=== PATIENT | female | born 1955 | race Caucasian/White ===

== ENCOUNTER 2017-01-19 10:58 | Outpatient (CLI) | payer OTHER ==
[~2017-01-19 10:58] MED LIST: ADVAIR DISKUS 21 DSK IH; ALBUTEROL0.09 MG/A2 IH; CRESTOR5 MG PO; FLOVENT HF44 MCG/ACT INH; HTN MEDS; LOTENSIN20 MG PO; MOTRIN600 MG PO; ORETIC25 MG PO; PROAIR HFA0.09 MG/Ac IH; ZANTAC150 MG PO; unknown meds
== END 2017-01-19 20:03 | disposition home or self-care (01) ==
LOC: MRD 10:58
PROVIDERS: ATTEND Family Medicine
DX: M54.31 Sciatica, right side (principal)

== ENCOUNTER 2018-01-14 10:19 | Outpatient (CLI) | payer OTHER ==
[~2018-01-14 10:19] MED LIST changes: -ADVAIR DISKUS 21 DSK IH; +ALBU-136 IH; -ALBUTEROL0.09 MG/A2 IH; +BENA20TA PO; -CRESTOR5 MG PO; +FLO44 INH; -FLOVENT HF44 MCG/ACT INH; +FLUT1DSK2 IH; +IBUP-2213 PO; -LOTENSIN20 MG PO; -MOTRIN600 MG PO; +ORE25 PO; -ORETIC25 MG PO; -PROAIR HFA0.09 MG/Ac IH; +RANI-287 PO; +ROSU5TAB PO; -ZANTAC150 MG PO; -unknown meds
[2018-01-14 12:13] LABS: ALBUMIN 3.4 g/dL (3.4-5.0); ANION GAP 13.5 (8-16); BILIRUBIN,DIRECT 0.1 mg/dL (0.0-0.3); CARBON DIOXIDE 26.4 mmol/L (21-32); CHOL/HDL RATIO 3.4 (1-4.5); CREATININE 0.9 mg/dL (0.6-1.3); POTASSIUM 3.9 mmol/L (3.5-5.1); TOTAL BILIRUBIN 0.3 mg/dL (0.0-1.0)
== END 2018-01-14 20:28 | disposition home or self-care (01) ==
LOC: MLB 10:19
DX: Z13.1 Encounter for screening for diabetes mellitus (principal); I10 Essential (primary) hypertension; E78.2 Mixed hyperlipidemia
CPT/HCPCS: 36415; 80053; 82248; 83036

== ENCOUNTER 2018-02-02 09:43 | Outpatient (CLI) | payer OTHER | END 2018-02-02 19:23 | disposition home or self-care (01) | LOC: MRD 09:43 | PROVIDERS: ATTEND Family Medicine Geriatric Medicine | DX: J40 Bronchitis, not specified as acute or chronic (principal); J45.41 Moderate persistent asthma with (acute) exacerbation | CPT/HCPCS: 71046 ==

== ENCOUNTER 2018-12-09 13:39 | Outpatient (CLI) | payer OTHER | END 2018-12-09 20:48 | disposition home or self-care (01) | LOC: MRD 13:39 | PROVIDERS: ATTEND Family Medicine Geriatric Medicine | DX: R05 Cough (principal); I11.9 Hypertensive heart disease without heart failure; M47.894 Other spondylosis, thoracic region; J45.42 Moderate persistent asthma with status asthmaticus; F15.90 Other stimulant use, unspecified, uncomplicated; Z87.891 Personal history of nicotine dependence; Z88.0 Allergy status to penicillin | CPT/HCPCS: 71046 ==

== ENCOUNTER 2018-12-14 14:17 | Outpatient (CLI) | payer OTHER ==
[2018-12-14 14:42] LABS: BASOPHILS # (AUTO) 0.1 K/uL (0.00-0.22); BASOPHILS % (AUTO) 0.8 % (0.0-2.0); EOSINOPHILS # (AUTO) 0.3 K/uL (0-0.4); EOSINOPHILS % (AUTO) 3.7 % (0.0-4.0); HEMOGLOBIN 10.6 g/dL (12.0-16.0); LYMPHOCYTES # (AUTO) 1.3 K/uL (2.5-16.5); LYMPHOCYTES % (AUTO) 15.9 % (20.5-51.1); MEAN CORPUSCULAR HEMOGLOBIN 28 pg (27-31); MEAN CORPUSCULAR HGB CONC 32 g/dL (33-37); MEAN CORPUSCULAR VOLUME 86.3 fL (80-94); MONOCYTES # (AUTO) 0.6 K/uL (0.8-1.0); MONOCYTES % (AUTO) 6.7 % (1.7-9.3); NEUTROPHILS # (AUTO) 6.1 K/uL (1.8-7.7); NEUTROPHILS % (AUTO) 72.9 % (42.2-75.2); PLATELET COUNT (AUTO) 411 K/uL (140-450); RED BLOOD CELL COUNT(AUTO) 3.83 MIL/uL (4.20-5.40); WHITE BLOOD COUNT (AUTO) 8.4 K/uL (4.8-10.8)
[2018-12-14 14:59] LABS: APPEARANCE,URINE CLEAR (CLEAR); BILIRUBIN,URINE NEGATIVE (NEGATIVE); BLOOD, URINE 1+ (NEGATIVE); COLOR,URINE YELLOW (YELLOW); LEUKOCYTE ESTERASE ,URINE NEGATIVE (NEGATIVE); NITRITE, URINE NEGATIVE (NEGATIVE); UGLUCOSE NEGATIVE (NEGATIVE)
[2018-12-14 15:00] LABS: RBC,URINE 3-10 (FEW) /HPF (0-5); WBC,URINE 0-5 (RARE) /HPF (0-5)
[2018-12-14 15:16] LABS: ALBUMIN 3.3 g/dL (3.4-5.0); ANION GAP 12.6 (8-16); CARBON DIOXIDE 27.9 mmol/L (21-32); CHOL/HDL RATIO 4.2 (1-4.5); CREATININE 0.8 mg/dL (0.6-1.3); FREE T4 (FREE THYROXINE) 1.03 ng/dL (0.76-1.46); POTASSIUM 3.5 mmol/L (3.5-5.1); THYROID STIMULATING HORMONE 0.01 uIU/mL (0.34-3.74); TOTAL BILIRUBIN 0.5 mg/dL (0.0-1.0)
== END 2018-12-14 19:28 | disposition home or self-care (01) ==
LOC: MLB 14:17
PROVIDERS: ATTEND Family Medicine Geriatric Medicine
DX: Z13.29 Encounter for screening for other suspected endocrine disorder (principal); Z13.0 Encounter for screening for diseases of the blood and blood-forming organs and certain disorders involving the immune mechanism; Z13.21 Encounter for screening for nutritional disorder; I10 Essential (primary) hypertension; E78.2 Mixed hyperlipidemia; F15.90 Other stimulant use, unspecified, uncomplicated; Z88.0 Allergy status to penicillin
CPT/HCPCS: 36415; 80053; 81001; 82306; 83036; 84439; 84443; 85025

== ENCOUNTER 2018-12-27 09:47 | Outpatient (CLI) | payer OTHER | END 2018-12-27 20:40 | disposition home or self-care (01) | LOC: MLB 09:47 | PROVIDERS: ATTEND Family Medicine Geriatric Medicine | DX: D64.9 Anemia, unspecified (principal); J45.909 Unspecified asthma, uncomplicated; I10 Essential (primary) hypertension; Z72.0 Tobacco use | CPT/HCPCS: 82272 ==

== ENCOUNTER 2019-03-29 16:44 | Outpatient (CLI) | payer OTHER | END 2019-03-29 20:55 | disposition home or self-care (01) | LOC: MCA 16:44 | PROVIDERS: ATTEND Internal Medicine Cardiovascular Disease | DX: I07.1 Rheumatic tricuspid insufficiency (principal); I27.20 Pulmonary hypertension, unspecified; I11.9 Hypertensive heart disease without heart failure; I70.0 Atherosclerosis of aorta; R06.00 Dyspnea, unspecified ==

== ENCOUNTER 2019-04-12 12:23 | Outpatient (CLI) | payer OTHER | END 2019-04-12 18:13 | disposition home or self-care (01) | LOC: MDS 12:23 → MRD 18:13 | PROVIDERS: ATTEND Neuromusculoskeletal Medicine, Sports Medicine | DX: S52.124A Nondisplaced fracture of head of right radius, initial encounter for closed fracture (principal); X58.XXXA Exposure to other specified factors, initial encounter; Y93.89 Activity, other specified; Y92.89 Other specified places as the place of occurrence of the external cause; Y99.8 Other external cause status | CPT/HCPCS: 73080 ==

== ENCOUNTER 2019-05-05 11:05 | Outpatient (CLI) | payer OTHER ==
[2019-05-05 12:33] LABS: BASOPHILS % (AUTO) 0.3 % (0.0-2.0); EOSINOPHILS % (AUTO) 0.4 % (0.0-4.0); HEMATOCRIT 22.5 % (36-48); LYMPHOCYTES # (AUTO) 0.8 K/uL (2.5-16.5); LYMPHOCYTES % (AUTO) 8.4 % (20.5-51.1); MEAN CORPUSCULAR HEMOGLOBIN 24 pg (27-31); MEAN CORPUSCULAR HGB CONC 31 g/dL (33-37); MEAN CORPUSCULAR VOLUME 76.7 fL (80-94); MONOCYTES # (AUTO) 0.3 K/uL (0.8-1.0); MONOCYTES % (AUTO) 3.6 % (1.7-9.3); NEUTROPHILS # (AUTO) 7.9 K/uL (1.8-7.7); NEUTROPHILS % (AUTO) 87.3 % (42.2-75.2); PLATELET COUNT (AUTO) 445 K/uL (140-450); RED BLOOD CELL COUNT(AUTO) 2.94 MIL/uL (4.20-5.40); RED CELL DISTRIBUTION WIDTH 15.8 % (11.6-13.7); WHITE BLOOD COUNT (AUTO) 9.1 K/uL (4.8-10.8)
== END 2019-05-05 20:52 | disposition home or self-care (01) ==
LOC: MLB 11:05
DX: D64.9 Anemia, unspecified (principal)
CPT/HCPCS: 36415; 82728; 83540; 85025

== ENCOUNTER 2019-05-05 19:21 | Inpatient (IN) | payer OTHER ==
[~2019-05-05] VITALS: Ht 157.5 cm; Wt 88.0 kg
[2019-05-05 19:25] VITALS: BP 145/84
--- NOTE | 2019-05-05 19:25 | NUR ---
PATIENT AMBULATED TO ER BED 1.
--- NOTE | 2019-05-05 19:44 | NUR ---
DR. MALDONADO EVALUATING PT
--- NOTE | 2019-05-05 19:49 | NUR ---
PT PRESENTS TO ED WITH C/O SOB, COUGH X3 WEEKS. PT ALSO REPORTS LETHARGY. STATED HEMOGLOBIN DROP FROM 10.6(11/2018) TO 7.0(TODAY. AAO X4, GCS 15, AMBULATORY WITH STEADY GAIT. RESPIRATIONS EVEN AND UNLABORED, BL LUNG CLEAR. SKIN WARM/PALE/DRY, +PMSC. ABDOMEN SOFT, NON DISTENDED, ACTIVE BOWEL SOUND X4. VS WNL, DENIES PAIN AT THIS TIME. WILL CONTIONUE TO MONITOR
[2019-05-05 20:46] LABS: BASOPHILS % (AUTO) 0.3 % (0.0-2.0); HEMATOCRIT 22.8 % (36-48); HEMOGLOBIN 7.1 g/dL (12.0-16.0); LYMPHOCYTES # (AUTO) 1.1 K/uL (2.5-16.5); LYMPHOCYTES % (AUTO) 9.9 % (20.5-51.1); MEAN CORPUSCULAR HEMOGLOBIN 24 pg (27-31); MEAN CORPUSCULAR HGB CONC 31 g/dL (33-37); MEAN CORPUSCULAR VOLUME 75.5 fL (80-94); MONOCYTES # (AUTO) 0.5 K/uL (0.8-1.0); MONOCYTES % (AUTO) 4.5 % (1.7-9.3); NEUTROPHILS # (AUTO) 9.5 K/uL (1.8-7.7); NEUTROPHILS % (AUTO) 85.3 % (42.2-75.2); PLATELET COUNT (AUTO) 518 K/uL (140-450); RED BLOOD CELL COUNT(AUTO) 3.02 MIL/uL (4.20-5.40); RED CELL DISTRIBUTION WIDTH 15.7 % (11.6-13.7); WHITE BLOOD COUNT (AUTO) 11.1 K/uL (4.8-10.8)
--- NOTE | 2019-05-05 20:56 | NUR ---
REPORT GIVEN TO RADHA RODRIGUEZ
[2019-05-05 20:57] LABS: ANION GAP 15.6 (8-16); CARBON DIOXIDE 23.5 mmol/L (21-32); CREATININE 0.8 mg/dL (0.6-1.3); POTASSIUM 4.1 mmol/L (3.5-5.1)
[2019-05-05 21:02] LABS: ALBUMIN 3.5 g/dL (3.4-5.0); TOTAL BILIRUBIN 0.3 mg/dL (0.0-1.0)
[2019-05-05] MEDS ORDERED: HYDROcodone/APAP 7.5/325 MG 1 TAB PO PRN (21:35)
[2019-05-05 21:55] LABS: PROTHROMBIN TIME 9.6 secs (10.8-13.4)
[2019-05-05 22:00] VITALS: BP 138/66
--- NOTE | 2019-05-05 22:00 | NUR ---
PATIENT ADMITTED TO ROOM 116, TELE FLOOR. UNDER THE CARE OF DR. KENDALL. REPORT GIVEN TO JENNIFER WOLF. PATIENT STABLE DURING TRANSFER.
--- NOTE | 2019-05-05 22:00 | NUR ---
REPORT RECEIVED FROM ED NURSE AT BEDSIDE. PT IN STABLE CONDITION. AAOX4. INTRODUCED TO PT. BOARD UPDATED. NO COMPLAINTS OF PAIN. NO SOB. AFEBRILE. PT IS AMBULATORY. VIP. IV SITE L AC 20G PATENT AND INTACT. SKIN WARM, DRY, AND INTACT WITH NO OPEN WOUNDS. MRSA NARES COLLECTED. PT SKIN COLOR WNL TO ETHNICITY. BED LOCKED IN LOW POSITION. CALL NORMAN WITHIN REACH. SAFETY PRECAUTION IN PLACE. ALL NEEDS MET AT THIS TIME.
[2019-05-05 22:01] LABS: AMYLASE 78 U/L (25-115); CHOL/HDL RATIO 3.5 (1-4.5); FREE T4 (FREE THYROXINE) 1.15 ng/dL (0.76-1.46); HDL CHOLESTEROL 48 mg/dL (40-60); LDL (CALC) 104 mg/dL (60-100); LIPASE 285 U/L (73-393); PHOSPHORUS 3.7 mg/dL (2.5-4.9); THYROID STIMULATING HORMONE < 0.01 uIU/mL (0.34-3.74); TRIGLYCERIDES 94 mg/dL (30-150)
[2019-05-05] MEDS ORDERED: IBUPROFEN 600 MG TAB PO PRN (22:40)
[2019-05-05] MEDS ORDERED: ALBUTEROL SULFATE/IPRATROPIU 3 ML SOL IH PRN (23:05)
[2019-05-05] MEDS: NACL 0.9% 500 ML IV SCH (23:29)
[2019-05-05] MEDS: ACETAMINOPHEN 325 MG TAB PO PRN (23:29)
--- NOTE | 2019-05-05 23:29 | NUR ---
TYL GIVEN PO FOR HEADACHE. PT TOLERATED WELL.
--- NOTE | 2019-05-06 00:10 | NUR ---
PATIENT LYING DOWN IN BED, WATCHING TV. INSTRUCTED TO USE CALL LIGHT WHEN NEEDED. WILL CONTINUE TO MONITOR PATIENT.
--- NOTE | 2019-05-06 01:30 | NUR ---
PATIENT SITTING UP IN BED, WATCHING TV. GAVE INSTRUCTIONS FOR URINE AND STOOL SPECIMEN COLLECTION. WILL CONTINUE TO MONITOR AND UPDATE PATIENT REGARDING BLOOD TRANSFUSION ORDER.
--- NOTE | 2019-05-06 02:42 | NUR ---
PATIENT LYING DOWN IN BED, APPEARS TO BE SLEEPING. WILL CONTINUE TO MONITOR PATIENT.
[2019-05-06 04:00] VITALS: BP 115/51
--- NOTE | 2019-05-06 04:05 | NUR ---
PATIENT LYING IN BED, APPEARS TO BE SLEEPING. WOKE UP FOR VITAL SIGNS CHECK. USED THE RESTROOM TO URINATE AND ABLE TO COLLECT SAMPLE FOR URINE LAB TEST. URINE SPECIMEN TAKEN TO THE LAB BY SILVIO.
[2019-05-06 05:16] LABS: APPEARANCE,URINE CLEAR (CLEAR); BILIRUBIN,URINE NEGATIVE (NEGATIVE); BLOOD, URINE TRACE-I (NEGATIVE); COLOR,URINE YELLOW (YELLOW); LEUKOCYTE ESTERASE ,URINE NEGATIVE (NEGATIVE); NITRITE, URINE NEGATIVE (NEGATIVE); PH,URINE 5.5 (5.0-9.0); UGLUCOSE 2+ (NEGATIVE)
[2019-05-06 06:06] LABS: RBC,URINE NONE SEEN /HPF (0-5); WBC,URINE 0-5 /HPF (0-5)
--- NOTE | 2019-05-06 06:25 | NUR ---
WENT TO BLOOD BANK AT 0610 TO BANKING PIN ADJUSTER BLOOD. STARTED BLOOD TRANSFUSION. EDUCATED PATIENT REGARDING SIGNS AND SYMPTOMS OF AN ALLERGIC REACTION. INSTRUCTED PATIENT TO REPORT ANY ALLERGIC REACTION FROM THE TRANSFUSION. INITIAL VS BP 132/81, P 82, T 98.1, RR 19. WILL CONTINUE TO MONITOR PATIENT.
--- NOTE | 2019-05-06 06:40 | NUR ---
PATIENT TOLERATING BLOOD TRANSFUSION WELL. VS ARE: BP 123/61, P 80, RR 17, T 98.3. PATIENT IS ON CONTINUOUS MONITORING DURING BLOOD TRANSFUSION.
--- NOTE | 2019-05-06 07:20 | NUR ---
REPORT GIVEN TO AM NURSE AT BEDSIDE. PT IN STABLE CONDITION.
--- NOTE | 2019-05-06 07:22 | NUR ---
RECEIVED BEDSIDE REPORT FROM SOCIAL WORK THERAPIST NURSE. PATIENT IS AWAKE AND RESTING ON BED. PATIENT IS RECEIVING BLOOD TRANSFUSION AT THIS TIME. NO ALLERGIC REACTION NOTED. PATIENT IS AAOX4. DENIES PAIN AND SOB AT THIS TIME. RESPIRATION EVEN AND UNLABORED ON RA. NO SIGNS OF DISTRESS NOTED. IV ON LAC 20G, CLEAN AND DRY, RECEIVING BLOOD TRANSFUSION. SKIN INTACT AND CLEAN. PATIENT IS CONTINENT AND ABLE TO AMBULATE WITH STANDBY ASSIST. DISCUSSED PLAN OF CARE WITH PATIENT AND PATIENT VERBALIZED UNDERSTANDING. INSTRUCTED PATIENT TO USE THE CALL LIGHT FOR ANY ASSISTANCE AND PATIENT WAS AWARE. BED IN LOW POSITION AND CALL LIGHT WITHIN REACH.
--- NOTE | 2019-05-06 07:28 | NUR ---
RECEIVED BEDSIDE REPORT FROM HYDROGEN POWER PLANT ENGINEER NURSE. PATIENT IS AWAKE AND RESTING ON BED. PATIENT IS AAOX4. DENIES PAIN AND SOB AT THIS TIME. RESPIRATION EVEN AND UNLABORED ON 2LPM VIA NC. NO SIGNS OF DISTRESS NOTED. PICC LINE ON R GROIN, CLEAN AND DRY. SKIN INTACT AND CLEAN. PATIENT IS CONTINENT AND ABLE TO AMBULATE WITH STANDBY ASSIST. BEDSIDE COMMODE IS IN PLACE. FALL RISK PROTOCOL INITIALED AND BED ALARM ACTIVATED. INSTRUCTED PATIENT TO USE THE CALL LIGHT FOR ANY ASSISTANCE AND PATIENT VERBALIZED OK. DISCUSSED PLAN OF CARE WITH PATIENT AND PATIENT VERBALIZED UNDERSTANDING. INSTRUCTED PATIENT TO USE THE CALL LIGHT FOR ANY ASSISTANCE AND PATIENT WAS AWARE. BED IN LOW POSITION AND CALL LIGHT WITHIN REACH. Addendum: 05/06/19 at 0737 by Nelly Shelley RN WRONG PATIENT.
--- NOTE | 2019-05-06 07:47 | NUR ---
PATIENT HAS BEEN SCREENED AND CATEGORIZED MODERATE NUTRITION RISK. PATIENT WILL BE SEEN WITHIN 3-5 DAYS OF ADMISSION. 05/08/19-05/10/[address]
[2019-05-06] MEDS: ACETAMINOPHEN 325 MG TAB PO SCH ×3 (07:55→15:54)
--- NOTE | 2019-05-06 07:57 | NUR ---
ADMINISTERED MEDS PER MD ORDER, PATIENT TOLERATED WELL. PATIENT IS AWAKE AND EATING BREAKFAST. BLOOD TRANSFUSION IS RUNNING AT 100ML/HR. NO ALLERGIC REACTIONS NOTED. MINIMAL COUGHS NOTED AND WHEEZE HEARD ON EXHALE. PATIENT DENIED PAIN AND SOB. ON RA. NO SIGNS OF DISTRESS NOTED. INSTRUCTED PATIENT TO USE THE CALL LIGHT FOR ANY ASSISTANCE AND PATIENT WAS AWARE.
[2019-05-06 08:03] LABS: BASOPHILS % (AUTO) 0.4 % (0.0-2.0); EOSINOPHILS # (AUTO) 0.1 K/uL (0-0.4); EOSINOPHILS % (AUTO) 0.5 % (0.0-4.0); LYMPHOCYTES # (AUTO) 1.8 K/uL (2.5-16.5); LYMPHOCYTES % (AUTO) 17.3 % (20.5-51.1); MEAN CORPUSCULAR HEMOGLOBIN 24 pg (27-31); MEAN CORPUSCULAR HGB CONC 31 g/dL (33-37); MEAN CORPUSCULAR VOLUME 76.3 fL (80-94); MONOCYTES % (AUTO) 9.7 % (1.7-9.3); NEUTROPHILS # (AUTO) 7.6 K/uL (1.8-7.7); NEUTROPHILS % (AUTO) 72.1 % (42.2-75.2); PLATELET COUNT (AUTO) 485 K/uL (140-450); RED BLOOD CELL COUNT(AUTO) 2.75 MIL/uL (4.20-5.40); RED CELL DISTRIBUTION WIDTH 15.9 % (11.6-13.7); WHITE BLOOD COUNT (AUTO) 10.6 K/uL (4.8-10.8)
[2019-05-06] MEDS: BUDESONIDE 0.25 MG/2 ML NEBU INH SCH ×2 (08:14→19:26)
[2019-05-06] MEDS ORDERED: ALBUTEROL SULFATE/IPRATROPIU 3 ML SOL IH PRN (08:15)
[2019-05-06 08:18] VITALS: BP 132/89
--- NOTE | 2019-05-06 08:30 | NUR ---
RECEIVED TELEPHONE ORDER FROM DR STREETER THAT HE WILL COME IN AROUND 1400 [address], AND HE WOULD LIKE TO PUT IN THE FOLLOWING ORDERS: CHANGE DIET FROM REGULAR TO CLEAR LIQUID, MAG CITRATE 300 ML AND DULCOLAX 5MG X3 TABS AT 1300 AND 1700 FOLLOW BY 2 LITERS OF WATER/7-UP AFTER MEDS ADMINISTRATION. READ BACK ORDER AND CONFIRMED ORDER WITH DR STREETER.
[2019-05-06 08:40] LABS: MAGNESIUM 2.1 mg/dL (1.8-2.4); PHOSPHORUS 4.4 mg/dL (2.5-4.9)
--- NOTE | 2019-05-06 08:40 | NUR ---
NOTIFIED DR GARDNER ON DR STREETER ORDER AND DR GARDNER WAS AWARE AND INPUT THE ORDERS.
[2019-05-06 08:45] LABS: ANION GAP 14.5 (8-16); CARBON DIOXIDE 23.1 mmol/L (21-32); CREATININE 0.8 mg/dL (0.6-1.3); POTASSIUM 3.6 mmol/L (3.5-5.1)
[2019-05-06] MEDS ORDERED: ALBUTEROL SULFATE/IPRATROPIU 3 ML SOL IH SCH (08:45)
[2019-05-06 08:58] LABS: HEMOGLOBIN 6.5 g/dL (12.0-16.0)
[2019-05-06] MEDS ORDERED: SODIUM FERRIC GLUCONATE 125 MG in NACL 0.9% 100 ML IV ONE (09:00)
--- NOTE | 2019-05-06 09:05 | NUR ---
RECEIVED CRITICAL VALUE FOR HGB 6.7 AND HCT 21, REPORTED TO DR GARDNER. PATIENT IS RECEIVING BLOOD TRANSFUSION AT THIS TIME. NO SIGNS OF DISTRESS NOTED. SAFETY MEASURES IN PLACE.
[2019-05-06] MEDS: ATORVASTATIN 20 MG TAB PO SCH (09:46)
[2019-05-06] MEDS: FAMOTIDINE 20 MG TAB PO SCH (09:46)
[2019-05-06] MEDS: DOCUSATE SODIUM 100 MG GELCAP PO SCH ×2 (09:48→20:37)
[2019-05-06] MEDS: HYDROCHLOROTHIAZIDE 25 MG TAB PO SCH (09:48)
--- NOTE | 2019-05-06 09:50 | NUR ---
BLOOD TRANSFUSION ENDED AT 0945, VITALS TAKEN AFTERWARD, NO ADVERSE REACTION NOTED. PATIENT DENIED SOB, DIZZINESS AND ITCH. PATIENT IS RESTING ON BED COMFORTABLY AT THIS TIME. SAFETY MEASURES IN PLACE. NOTIFIED DR GARDNER THAT BLOOD TRANSFUSION HAS COMPLETED. PER DR GARDNER, SHE WILL ORDER CBC.
--- NOTE | 2019-05-06 11:09 | NUR ---
ASSISTED PATIENT TO USE THE BATHROOM AND GO BACK ON BED. NO SIGNS OF DISTRESS NOTED. PATIENT DENIED PAIN AND SOB. TELE MONITOR ATTACHED. SAFETY MEASURES IN PLACE.
[2019-05-06 11:50] LABS: BASOPHILS # (AUTO) 0.1 K/uL (0.00-0.22); BASOPHILS % (AUTO) 0.7 % (0.0-2.0); EOSINOPHILS # (AUTO) 0.2 K/uL (0-0.4); EOSINOPHILS % (AUTO) 1.7 % (0.0-4.0); HEMOGLOBIN 7.5 g/dL (12.0-16.0); LYMPHOCYTES # (AUTO) 2.1 K/uL (2.5-16.5); LYMPHOCYTES % (AUTO) 21.1 % (20.5-51.1); MEAN CORPUSCULAR HEMOGLOBIN 24 pg (27-31); MEAN CORPUSCULAR HGB CONC 31 g/dL (33-37); MEAN CORPUSCULAR VOLUME 77.6 fL (80-94); MONOCYTES % (AUTO) 10.2 % (1.7-9.3); NEUTROPHILS # (AUTO) 6.7 K/uL (1.8-7.7); NEUTROPHILS % (AUTO) 66.3 % (42.2-75.2); PLATELET COUNT (AUTO) 441 K/uL (140-450); WHITE BLOOD COUNT (AUTO) 10.1 K/uL (4.8-10.8)
[2019-05-06 12:00] VITALS: BP 129/77
--- NOTE | 2019-05-06 12:22 | NUR ---
ADMINISTERED MEDS PER MD ORDER, PATIENT IS AWAKE AND SITTING UP ON EDGE OF BED. SHE IS EATING LUNCH. DENIES DIZZINESS, PAIN AND SOB. NO ADVERSE REACTION NOTED. TELE MONITOR ATTACHED. SAFETY MEASURES IN PLACE.
[2019-05-06] MEDS ORDERED: BISACODYL 5 MG TABEC PO SCH ×2 (13:00→19:00)
[2019-05-06] MEDS ORDERED: MAGNESIUM CITRATE 300 ML BTL PO SCH ×2 (13:00→19:00)
--- NOTE | 2019-05-06 13:15 | NUR ---
ADMINISTERED MEDS PER MD ORDER, PATIENT TOLERATED WELL. PROVIDED 2 LITER OF WATER IN WATER JAR. INSTRUCTED PATIENT TO DRINK 2 LITER OF WATER. PATIENT WAS AWARE AND SAID ," OK, I WILL TAKE MY TIME AND MAKE SURE I FINISH THEM BY EVENING." SAFETY MEASURES IN PLACE. TELE MONITOR ATTACHED.
--- NOTE | 2019-05-06 14:44 | NUR ---
PATIENT IS TALKING TO VISITOR AT BEDSIDE. NO SIGNS OF DISTRESS NOTED. SAFETY MEASURES IN PLACE. TELE MONITOR ATTACHED.
--- NOTE | 2019-05-06 15:16 | NUR ---
PATIENT IS AWAKE ON BED. DENIES PAIN AND SOB. NO SIGNS OF DISTRESS NOTED. GRANDDAUGHTER RIDA IS BY BEDSIDE. SAFETY MEASURES IN PLACE. TELE MONITOR ATTACHED. BED IN LOW POSITION AND CALL LIGHT WITHIN REACH. BED ALARM ACTIVATED. Addendum: 05/06/19 at 1517 by Nelly Shelley RN WRONG PATIENT
--- NOTE | 2019-05-06 15:17 | NUR ---
PATIENT IS AWAKE AND SITTING UP ON BED. DENIES PAIN AND SOB. NO SIGNS OF DISTRESS NOTED. TELE MONITOR ATTACHED. BED IN LOW POSITION AND CALL LIGHT WITHIN REACH.
[2019-05-06] MEDS: ONDANSETRON 4 MG/2 ML VIAL IVP PRN (15:23)
--- NOTE | 2019-05-06 15:29 | NUR ---
PATIENT COMPLAINED OF FEELING NAUSEA AFTER DRINKING TOO MUCH WATER. ADMINISTERED PRN ZOFRAN, PATIENT TOLERATED WELL. INSTRUCTED PATIENT TO SPACE OUT THE WATER TOLERATED. PATIENT SAID OK. PATIENT IS TALKING TO VISITOR EDI AT BEDSIDE. SAFETY MEASURES IN PLACE. TELE MONITOR ATTACHED.
--- NOTE | 2019-05-06 15:55 | NUR ---
ADMINISTERED MEDS PER MD ORDER, PATIENT TOLERATED WELL. PATIENT SAID, " I FEEL BETTER FROM THE NAUSEA AFTER MEDICINE." PATIENT IS RESTING ON BED AND WATCHING TV AT THIS TIME. DENIES PAIN AND SOB. NO SIGNS OF DISTRESS NOTED. SAFETY MEASURES IN PLACE. TELE MONITOR ATTACHED.
[2019-05-06 16:00] VITALS: BP 140/69
--- NOTE | 2019-05-06 16:40 | NUR ---
DR LEE IS ASSESSING PATIENT AT BEDSIDE. NO SIGNS OF DISTRESS NOTED. TELE MONITOR ATTACHED. BED IN LOW POSITION AND CALL LIGHT WITHIN REACH.
--- NOTE | 2019-05-06 17:51 | NUR ---
PATIENT IS SITTING UP ON BED AND TALKING TO AT BEDSIDE. NO SIGNS OF DISTRESS NOTED. SAFETY MEASURES IN PLACE. TELE MONITOR IN PLACE. BED IN LOW POSITION AND CALL LIGHT WITHIN REACH.
--- NOTE | 2019-05-06 18:01 | NUR ---
COLLECTED STOOL CULTURE AND DELIVERED TO LAB.
--- NOTE | 2019-05-06 18:25 | NUR ---
DR STREETER IS TALKING TO PATIENT AT BEDSIDE. NO SIGNS OF DISTRESS NOTED. SAFETY MEASURES IN PLACE. TELE MONITOR ATTACHED.
--- NOTE | 2019-05-06 18:50 | NUR ---
OBTAINED CONSENTS FOR COLONOSCOPY AND EDG. DR STREETER HAS EXPLAINED TO PATIENT ABOUT THE RISKS AND BENEFITS. PATIENT WAS AWARE AND AGREED FOR THE PROCEDURES.
[2019-05-06] MEDS: ALBUTEROL SULFATE/IPRATROPIU 3 ML SOL IH SCH (19:00)
--- NOTE | 2019-05-06 19:07 | NUR ---
ENDORSED PATIENT TO MANAGER CRISIS NURSE FOR CONTINUITY OF CARE. PATIENT IS IN A STABLE CONDITION. INFORMED MANAGER CRISIS NURSE THAT PATIENT NEEDS TO DRINK 2L OF WATER AND PREPARING FOR COLONOSCOPY AND EDG TOMORROW. PATIENT HAS TO BE NPO AFTER MIDNIGHT. MANAGER CRISIS NURSE WAS AWARE.
--- NOTE | 2019-05-06 19:08 | NUR ---
RECEIVED BEDSIDE REPORT FROM DAY SHIFT NURSE. PATIENT IS AWAKE AND RESTING ON BED. PATIENT IS AAOX4. DENIES PAIN AND SOB AT THIS TIME. RESPIRATION EVEN AND UNLABORED ON ROOM AIR. NO SIGNS OF DISTRESS NOTED. IV ON LAC 20G, INTACT, PATENT, AND ASYMPTOMATIC. SKIN INTACT, WARM AND DRY TO TOUCH. PATIENT IS CONTINENT AND ABLE TO AMBULATE WITH STANDBY ASSIST. DISCUSSED PLAN OF CARE WITH PATIENT AND PATIENT VERBALIZED UNDERSTANDING. INSTRUCTED PATIENT TO USE THE CALL LIGHT FOR ANY ASSISTANCE AND PATIENT WAS AWARE. BED IN LOW POSITION AND CALL LIGHT WITHIN REACH.
[2019-05-06 20:00] VITALS: BP 147/67
--- NOTE | 2019-05-06 20:44 | NUR ---
GIVEN HEPARIN AND COLACE ORDERED. PT TOLERATED WELL. WILL CONTINUE TO MONITOR.
--- NOTE | 2019-05-06 22:30 | NUR ---
ENCOURAGE PT TO DRINK WATER UP TO 2L FOR COLONOSCOPY TOMORROW. PT UNDERSTAND BY VERBALIZED.
[2019-05-06] MEDS: NACL 0.9% 500 ML IV SCH (23:15)
[2019-05-07] VITALS: BP 149/82
[2019-05-07] MEDS: ACETAMINOPHEN 325 MG TAB PO PRN ×2 (00:25→09:11)
--- NOTE | 2019-05-07 00:25 | NUR ---
PT C/O HEADACHE 02/06 AND N/V. GIVEN ZOFRAN AND TYLENOL DR. ORDERED. PT TOLERATED WELL.
[2019-05-07] MEDS: ONDANSETRON 4 MG/2 ML VIAL IVP PRN ×2 (00:26→10:07)
--- NOTE | 2019-05-07 02:26 | NUR ---
PT SLEEPING IN BED COMFORTABLY. NO SOB NOTED. NO ACUTE DISTRESS NOTED. BED IN LOW POSITION. CALL LIGHT WITHIN REACH.
[2019-05-07 04:00] VITALS: BP 138/47
--- NOTE | 2019-05-07 04:05 | NUR ---
PT SLEEPING. VS CHECKED. WITHIN PT'S BASELINE. WILL CONTINUE TO MONITOR.
--- NOTE | 2019-05-07 06:05 | NUR ---
ACCORDING TO PT, PT HAD 10 TIMES OF BM AND IT WAS CLEAR AND WATERY AT THE LAST TIME. ALLOW PT TO HAVE ONLY ICE CHIPS. PT UNDERSTAND BY VERBALIZED.
[2019-05-07] MEDS: ALBUTEROL SULFATE/IPRATROPIU 3 ML SOL IH SCH ×3 (07:00→15:00)
--- NOTE | 2019-05-07 07:15 | NUR ---
RECEIVED PT FROM SOCIAL SERVICE COORDINATOR NURSE, PT IS AWAKE AND LYING ON THE BED WITH SIDE RAILS UP AND CALL LIGHT WITHIN REACH, PT HAS AN IV LINE ON THE LEFT AC G.20 WITH NS AT KVO, INTACT. PT IS SCHEDULE FOR A COLONOSCOPY THIS AM, CHECKLIST VERIFIED AND WAS DONE BY SOCIAL SERVICE COORDINATOR NURSE. NO SIGN OF DISTRESS NOTED AND WILL MONITOR PT.
[2019-05-07] MEDS ORDERED: MIDAZOLAM 2 MG/2 ML VIAL ONE (07:17)
[2019-05-07] MEDS ORDERED: fentaNYL 0.05 MG/ML VIAL ONE (07:17)
[2019-05-07] MEDS: BUDESONIDE 0.25 MG/2 ML NEBU INH SCH (07:17)
--- NOTE | 2019-05-07 07:20 | NUR ---
PT IS OFF THE UNIT NOW FOR A COLONOSCOPY.
--- NOTE | 2019-05-07 07:24 | NUR ---
ENDORSED PT TO DAY SHIFT NURSE. PT IN STABLE CONDITION.
[2019-05-07] MEDS: MIDAZOLAM 2 MG/2 ML VIAL IVP ONE ×2 (07:55→09:24)
[2019-05-07] MEDS: fentaNYL 0.05 MG/ML VIAL IVP ONE ×2 (07:55→09:24)
[2019-05-07 07:58] LABS: BASOPHILS # (AUTO) 0.1 K/uL (0.00-0.22); BASOPHILS % (AUTO) 0.8 % (0.0-2.0); EOSINOPHILS # (AUTO) 0.2 K/uL (0-0.4); EOSINOPHILS % (AUTO) 2.4 % (0.0-4.0); HEMATOCRIT 27.8 % (36-48); HEMOGLOBIN 8.6 g/dL (12.0-16.0); LYMPHOCYTES # (AUTO) 1.6 K/uL (2.5-16.5); LYMPHOCYTES % (AUTO) 16.5 % (20.5-51.1); MEAN CORPUSCULAR HEMOGLOBIN 24 pg (27-31); MEAN CORPUSCULAR HGB CONC 31 g/dL (33-37); MEAN CORPUSCULAR VOLUME 77.7 fL (80-94); MONOCYTES # (AUTO) 0.8 K/uL (0.8-1.0); MONOCYTES % (AUTO) 7.7 % (1.7-9.3); NEUTROPHILS # (AUTO) 7.2 K/uL (1.8-7.7); NEUTROPHILS % (AUTO) 72.6 % (42.2-75.2); PLATELET COUNT (AUTO) 570 K/uL (140-450); RED BLOOD CELL COUNT(AUTO) 3.58 MIL/uL (4.20-5.40); RED CELL DISTRIBUTION WIDTH 16.7 % (11.6-13.7); WHITE BLOOD COUNT (AUTO) 9.9 K/uL (4.8-10.8)
[2019-05-07 08:00] VITALS: BP 123/74
[2019-05-07 08:33] LABS: ANION GAP 13.9 (8-16); CARBON DIOXIDE 26.2 mmol/L (21-32); CREATININE 0.9 mg/dL (0.6-1.3); POTASSIUM 3.1 mmol/L (3.5-5.1)
[2019-05-07 08:43] LABS: MAGNESIUM 2.7 mg/dL (1.8-2.4); PHOSPHORUS 4.9 mg/dL (2.5-4.9)
[2019-05-07] MEDS: HYDROCHLOROTHIAZIDE 25 MG TAB PO SCH (09:11)
[2019-05-07] MEDS: FAMOTIDINE 20 MG TAB PO SCH (09:11)
[2019-05-07] MEDS: ATORVASTATIN 20 MG TAB PO SCH (09:12)
[2019-05-07] MEDS: DOCUSATE SODIUM 100 MG GELCAP PO SCH (09:12)
--- NOTE | 2019-05-07 09:25 | NUR ---
PT IS AWAKE AND LYING ON THE BED WITH SIDE RAILS UP AND CALL LIGHT WITHIN REACH, FAMILY ON THE BEDSIDE, PT IS CONVERSING WITH FAMILY, ORAL AND SUBQ MEDICATIONS WERE GIVEN,PARAMETERS CHECKED AND PT TOLERATED IT. NO SIGN OF DISTRESS NOTED, WILL RE-ASSESS PAIN AND MONITOR PT.
[2019-05-07] MEDS ORDERED: POTASSIUM CHLORIDE 40 MEQ, LIDOCAINE MPF 1% - 5 mL VIAL 25 MG in NACL 0.9% 250 ML IV SCH (11:00)
[2019-05-07 12:00] VITALS: BP 145/67
--- NOTE | 2019-05-07 12:03 | NUR ---
DR. RECIO CAME TO THE PT'S ROOM AND IS TALKING TO PT NOW REGARDING THE PLAN OF CARE.
--- NOTE | 2019-05-07 12:03 | NUR ---
POTASSIUM 40MEQ IV WA STARTED TO PT NOW AT A RATE OF 68ML/HR.
[2019-05-07 14:48] LABS: ANION GAP 11.4 (8-16); CARBON DIOXIDE 29.1 mmol/L (21-32); POTASSIUM 3.5 mmol/L (3.5-5.1)
[2019-05-07] MEDS ORDERED: LANS15EC28 PO (14:54)
[2019-05-07] MEDS ORDERED: FERR-15 PO (14:54)
[2019-05-07] MEDS ORDERED: LOSA25TA43 PO (14:54)
[2019-05-07] MEDS ORDERED: VITA1TAB44 PO (14:54)
[2019-05-07] MEDS ORDERED: SODIUM FERRIC GLUCONATE 125 MG in NACL 0.9% 100 ML IV SCH (15:30)
--- NOTE | 2019-05-07 15:49 | NUR ---
DR. RECIO IS TALKING TO PT NOW AND GIVING TEACHING AND MEDICATION INSTRUCTIONS TO PT, PT VERBALIZED UNDERSTANDING.
[2019-05-07 16:00] VITALS: BP 137/76
--- NOTE | 2019-05-07 16:50 | NUR ---
DISCHARGED PT VIA WHEELCHAIR ACCOMPANIED BY , IV LINE AND ARM BANDS REMOVED, TEACHINGS AND MEDICATION INSTRUCTIONS WERE GIVEN TO PT AND VERBALIZED UNDERSTANDING. VITAL SIGNS TAKEN AND CHARTED. PT IS STABLE AT THIS TIME.
== END 2019-05-07 16:50 | disposition home or self-care (01) | DRG 812 ==
LOC: MED 19:21 → MTU 21:36
PROVIDERS: ADMIT General Practice; ATTEND General Practice
PROC: 0DB58ZX Excision of Esophagus, Via Natural or Artificial Opening Endoscopic, Diagnostic (ICD-10-PCS; 2019-05-05)
PROC: 0DB68ZX Excision of Stomach, Via Natural or Artificial Opening Endoscopic, Diagnostic (ICD-10-PCS; 2019-05-05)
PROC: 0DB68ZZ Excision of Stomach, Via Natural or Artificial Opening Endoscopic (ICD-10-PCS; 2019-05-05)
PROC: 0DJD8ZZ Inspection of Lower Intestinal Tract, Via Natural or Artificial Opening Endoscopic (ICD-10-PCS; 2019-05-05)
PROC: 30233N1 Transfusion of Nonautologous Red Blood Cells into Peripheral Vein, Percutaneous Approach (ICD-10-PCS; principal; 2019-05-06)
DX: D50.9 Iron deficiency anemia, unspecified (principal); K29.70 Gastritis, unspecified, without bleeding; H93.A9 Pulsatile tinnitus, unspecified ear; D47.3 Essential (hemorrhagic) thrombocythemia; E66.9 Obesity, unspecified; E78.5 Hyperlipidemia, unspecified; J44.9 Chronic obstructive pulmonary disease, unspecified; D72.829 Elevated white blood cell count, unspecified; E05.90 Thyrotoxicosis, unspecified without thyrotoxic crisis or storm; T38.0X5A Adverse effect of glucocorticoids and synthetic analogues, initial encounter; E83.41 Hypermagnesemia; E87.6 Hypokalemia; K57.30 Diverticulosis of large intestine without perforation or abscess without bleeding; I11.9 Hypertensive heart disease without heart failure; K21.0 Gastro-esophageal reflux disease with esophagitis; K44.9 Diaphragmatic hernia without obstruction or gangrene; R13.10 Dysphagia, unspecified; Z68.36 Body mass index [BMI] 36.0-36.9, adult; Z88.0 Allergy status to penicillin; Z79.899 Other long term (current) drug therapy; Z87.891 Personal history of nicotine dependence; Y92.89 Other specified places as the place of occurrence of the external cause; Z86.11 Personal history of tuberculosis
CPT/HCPCS: 36415; 36430; 71045; 71046; 80048; 80053; 81001; 82150; 82272; 83036; 83540; 83690; 83735; 83880; 84100; 84439; 84443; 84484; 85025; 85610; 85730; 86886; 86900; 86901; 86920; 87081; 88305; 88312; 88313; 93005; 93880; 94640; 99285; J1644; J2001; J2250; J2405; J2916; J3010; J3480; J7030; J7620; J7626; P9016; Q0092; Q0163

== ENCOUNTER 2019-05-16 14:33 | Outpatient (CLI) | payer OTHER ==
[~2019-05-16 14:33] MED LIST changes: -BENA20TA PO; +FERR-15 PO; -HTN MEDS; +LANS15EC28 PO; +LOSA25TA43 PO; +VITA1TAB44 PO
[2019-05-16 17:35] LABS: HEMOGLOBIN 8.9 g/dL (12.0-16.0); RED BLOOD CELL COUNT(AUTO) 3.43 MIL/uL (4.20-5.40); WHITE BLOOD COUNT (AUTO) 7.3 K/uL (4.8-10.8)
[2019-05-16 17:36] LABS: HEMATOCRIT 27.4 % (36-48); LYMPHOCYTES % (AUTO) 16.3 % (20.5-51.1); MEAN CORPUSCULAR HEMOGLOBIN 26 pg (27-31); MEAN CORPUSCULAR HGB CONC 33 g/dL (33-37); MONOCYTES % (AUTO) 7.2 % (1.7-9.3); PLATELET COUNT (AUTO) 390 K/uL (140-450); RED CELL DISTRIBUTION WIDTH 19.4 % (11.6-13.7)
[2019-05-16 17:37] LABS: BASOPHILS % (AUTO) 0.6 % (0.0-2.0); EOSINOPHILS # (AUTO) 0.2 K/uL (0-0.4); EOSINOPHILS % (AUTO) 2.9 % (0.0-4.0); LYMPHOCYTES # (AUTO) 1.2 K/uL (2.5-16.5); MONOCYTES # (AUTO) 0.5 K/uL (0.8-1.0); NEUTROPHILS # (AUTO) 5.3 K/uL (1.8-7.7)
== END 2019-05-16 21:44 | disposition home or self-care (01) ==
LOC: MLB 14:33
DX: D64.9 Anemia, unspecified (principal)
CPT/HCPCS: 36415; 82728; 83540; 85025

== ENCOUNTER 2019-05-29 13:03 | Inpatient (IN) | payer OTHER ==
[~2019-05-29] VITALS: Ht 157.5 cm; Wt 88.0 kg
--- NOTE | 2019-05-29 | NUR ---
VITALS TAKEN. TOLERATED WELL. NO SIGNS OF DISTRESS. ROOM AIR. VITALS WITHIN NORMAL LIMITS. WILL CONTINUE TO MONITOR. Addendum: 05/30/19 at 0312 by Shea Brewster RN INCORRECT DATE. 05/30/19 @ 0000
--- NOTE | 2019-05-29 13:08 | NUR ---
PATIENT AMBULATED TO BED 1 AT THIS TIME.
[2019-05-29 13:24] VITALS: BP 138/52
--- NOTE | 2019-05-29 13:32 | NUR ---
PT PRESENTS TO ED WITH C/O PRODUCTIVE COUGH X 3 DAYS. DENIES N/V/D. +BODYACHES, +FEVER; AFEBRILE AT THIS TIME. PT VERBALIZED FEELING SOB; RR EVEN AND UNLABORED, O2 SAT 98% ON RA. PT STATES GENERALIZED PAIN IS 7/10 AT THIS TIME. ERMD TO EVALUATE PT.
[2019-05-29] MEDS ORDERED: FOLI1TAB90 PO (14:10)
[2019-05-29] MEDS ORDERED: PROM118S4 PO (14:10)
[2019-05-29] MEDS ORDERED: DOCU-299 PO (14:10)
[2019-05-29] MEDS ORDERED: BUDE1AER IH ×2 (14:10)
[2019-05-29] MEDS ORDERED: ROSU10TA1 PO (14:10)
[2019-05-29] MEDS ORDERED: PRON INH (14:11)
--- NOTE | 2019-05-29 14:12 | NUR ---
X-Ray at bedside.
--- NOTE | 2019-05-29 14:13 | NUR ---
LABS DRAWN BY JENNIFER HERBERT; GIVEN TO MICHELLE MILLING MACHINE OPERATOR GEAR.
[2019-05-29 14:38] LABS: BASOPHILS % (AUTO) 0.8 % (0.0-2.0); EOSINOPHILS # (AUTO) 0.1 K/uL (0-0.4); EOSINOPHILS % (AUTO) 2.8 % (0.0-4.0); HEMATOCRIT 30.9 % (36-48); HEMOGLOBIN 9.7 g/dL (12.0-16.0); LYMPHOCYTES # (AUTO) 0.7 K/uL (2.5-16.5); LYMPHOCYTES % (AUTO) 14.6 % (20.5-51.1); MEAN CORPUSCULAR HEMOGLOBIN 26 pg (27-31); MEAN CORPUSCULAR HGB CONC 32 g/dL (33-37); MEAN CORPUSCULAR VOLUME 81.9 fL (80-94); MONOCYTES # (AUTO) 0.7 K/uL (0.8-1.0); NEUTROPHILS # (AUTO) 3.3 K/uL (1.8-7.7); NEUTROPHILS % (AUTO) 67.8 % (42.2-75.2); PLATELET COUNT (AUTO) 317 K/uL (140-450); RED BLOOD CELL COUNT(AUTO) 3.77 MIL/uL (4.20-5.40); RED CELL DISTRIBUTION WIDTH 22.5 % (11.6-13.7); WHITE BLOOD COUNT (AUTO) 4.8 K/uL (4.8-10.8)
[2019-05-29 14:56] LABS: ANION GAP 15.3 (8-16); CARBON DIOXIDE 26.6 mmol/L (21-32); CREATININE 0.8 mg/dL (0.6-1.3); MAGNESIUM 2.1 mg/dL (1.8-2.4); POTASSIUM 3.9 mmol/L (3.5-5.1)
[2019-05-29 15:09] LABS: PROTHROMBIN TIME 9.8 secs (10.8-13.4)
[2019-05-29 15:10] LABS: ALBUMIN 3.3 g/dL (3.4-5.0); TOTAL BILIRUBIN 0.4 mg/dL (0.0-1.0)
--- NOTE | 2019-05-29 15:19 | NUR ---
Patient is resting comfortably in bed. Vital Signs within normal limits. Respirations even and unlabored. denies any pain at this time. family member at bedside. No new orders at this time.
[2019-05-29] MEDS ORDERED: FAMOTIDINE 20 MG TAB PO ONE (15:30)
[2019-05-29] MEDS ORDERED: hydrOXYzine HCL 25 MG TAB PO ONE (15:30)
[2019-05-29] MEDS ORDERED: ALBUTEROL SULFATE/IPRATROPIU 3 ML SOL IH ONE (15:30)
[2019-05-29] MEDS ORDERED: LEVOFLOXACIN 500 MG/D5W PREMIX 100 ML IV ONE (15:30)
[2019-05-29] MEDS ORDERED: methylPREDNISolone SS 125 MG/2 ML VIAL IVP ONE (15:30)
[2019-05-29 15:46] LABS: APPEARANCE,URINE CLEAR (CLEAR); BILIRUBIN,URINE NEGATIVE (NEGATIVE); BLOOD, URINE 1+ (NEGATIVE); COLOR,URINE YELLOW (YELLOW); LEUKOCYTE ESTERASE ,URINE NEGATIVE (NEGATIVE); NITRITE, URINE NEGATIVE (NEGATIVE); UGLUCOSE NEGATIVE (NEGATIVE)
[2019-05-29 16:02] LABS: WBC,URINE 0-5 /HPF (0-5)
[2019-05-29] MEDS ORDERED: DOCUSATE SODIUM 100 MG GELCAP PO PRN (16:40)
[2019-05-29] MEDS ORDERED: HYDROcodone/APAP 5/325 MG 1 TAB TAB PO PRN (16:40)
[2019-05-29] MEDS ORDERED: ACETAMINOPHEN 325 MG TAB PO PRN (16:40)
[2019-05-29] MEDS ORDERED: LORazepam 2 MG/ML VIAL IM/IVP PRN (16:40)
[2019-05-29] MEDS ORDERED: MORPHINE SULFATE 2 MG/ML SYR IVP PRN (16:40)
[2019-05-29] MEDS ORDERED: ONDANSETRON 4 MG/2 ML VIAL IM/IVP PRN (16:40)
[2019-05-29] MEDS ORDERED: ALBUTEROL SULFATE/IPRATROPIU 3 ML SOL IH PRN (16:45)
--- NOTE | 2019-05-29 17:15 | NUR ---
RECEIVED REPORT FROM ED NURSE. PT BROUGHT TO UNIT VIA W/C, TRANSFERRED TO [facility] BED WITH STEADY GAIT. AT BEDSIDE. AAOX4, COOPERATIVE. RESPIRATIONS EVEN AND UNLABORED ON RA. IV ON RT AC 20 GA RUNNING IVF PER ORDER, DRESSING CLEAN, DRY AND INTACT. LBM 6/30, BOWEL SOUNDS ACTIVE. SKIN IS INTACT, WARM TO TOUCH, COLOR IS APPROPRIATE TO ETHNICITY. NO EDEMA NOTED TO EXTREMITIES. EXPLAINED AND REVIEWED POC WITH PT AND , PT VERBALIZED UNDERSTANDING. CALL LIGHT WITHIN REACH. WILL CONTINUE TO MONITOR.
--- NOTE | 2019-05-29 17:16 | NUR ---
Patient will be admitted to care of Dr. Wheat. Admited to Med-surg room 116. Belongings list completed.
[2019-05-29 17:25] LABS: CHOL/HDL RATIO 3.8 (1-4.5); FREE T4 (FREE THYROXINE) 1.27 ng/dL (0.76-1.46); HDL CHOLESTEROL 36 mg/dL (40-60); LDL (CALC) 77 mg/dL (60-100); THYROID STIMULATING HORMONE < 0.01 uIU/mL (0.34-3.74); TRIGLYCERIDES 123 mg/dL (30-150)
[2019-05-29 17:45] LABS: BARBITURATE, URINE NEG. ng/ml (NEG <=200); BENZODIAZEPINE, URINE NEG. ng/mL (NEG <=200); CANNABINOID, URINE NEG. ng/mL (NEG <=50); COCAINE, URINE NEG. ng/mL (NEG <=300); OPIATE, URINE NEG. ng/mL (NEG <=2000); PHENCYCLIDINE SCREEN,URINE NEG. ng/mL (NEG <=25)
[2019-05-29] MEDS ORDERED: guaiFENesin DM 200/20 MG-10 ML 10 ML UDC PO PRN (18:30)
[2019-05-29] MEDS: NACL 0.9% 1,000 ML IV SCH (19:08)
--- NOTE | 2019-05-29 19:12 | NUR ---
ENDORSED PT TO COMPLAINT INVESTIGATOR NURSE. NO SIGNS OF DISTRESS AT THIS TIME.
--- NOTE | 2019-05-29 19:13 | NUR ---
RECEIVED BEDSIDE REPORT FROM [facility] JENNIFER PERRY. PT A/0 X4. ROMANSH SPEAKING. DISCUSSED PLAN OF CARE. VERBALIZED UNDERSTANDING. ABLE TO MAKE NEEDS KNOWN. AT BEDSIDE. STANDARD PRECAUTIONS. NO SIGNS OF RESP DISTRESS. ROOM AIR. SKIN IS INTACT. R AC 20 G SALINE LOCK. IV SITE PATENT AND INTACT. AMBULATORY. STEADY GAIT. CONTINENT. BED IN LOW POSITION. CALL LIGHT WITHIN REACH. WILL CONTINUE TO MONITOR. Addendum: 05/30/19 at 0250 by Shea Brewster RN RECEIVED BEDSIDE REPORT FROM [facility] JENNIFER MCCRAY. PT A/0 X4. YI SPEAKING. DISCUSSED PLAN OF CARE. VERBALIZED UNDERSTANDING. ABLE TO MAKE NEEDS KNOWN. STANDARD PRECAUTIONS. NO SIGNS OF RESP DISTRESS. ROOM AIR. SKIN IS INTACT. R AC 20 G INFUSING NS @60. IV SITE PATENT AND INTACT. AMBULATORY. STEADY GAIT. CONTINENT. BED IN LOW POSITION. CALL LIGHT WITHIN REACH. WILL CONTINUE TO MONITOR.
[2019-05-29] MEDS: ALBUTEROL SULFATE/IPRATROPIU 3 ML SOL IH SCH (19:37)
[2019-05-29 20:00] VITALS: BP 115/62
[2019-05-29] MEDS ORDERED: AZITHROMYCIN 250 MG TAB PO SCH (20:00)
[2019-05-29] MEDS ORDERED: ZOLPIDEM 5 MG TAB PO PRN (21:00)
--- NOTE | 2019-05-29 21:00 | NUR ---
IV SITE INFILTRATED. STOPPED INFUSING. WILL DISCONTINUE IV SITE AND INSERT NEW IV SITE.
--- NOTE | 2019-05-29 21:20 | NUR ---
NEW IV INSERTION L HAND 22G. INFUSING NS @60. TOLERATED WELL. NO SIGNS OF DISTRESS. WILL CONTINUE TO MONITOR.
[2019-05-29] MEDS ORDERED: cefTRIAXone 1,000 MG VIAL ONE (21:32)
[2019-05-30] VITALS: BP 101/58
--- NOTE | 2019-05-30 | NUR ---
VITALS TAKEN. TOLERATED WELL. NO SIGNS OF DISTRESS. ROOM AIR. VITALS WITHIN NORMAL LIMITS. WILL CONTINUE TO MONITOR.
--- NOTE | 2019-05-30 02:00 | NUR ---
PT AWAKE IN BED WATCHING TV. REQUESTED TOOTHBRUSH AND TOOTH PASTE AND GOWN. BED IN LOW POSITION. CALL LIGHT WITHIN REACH. WILL CONTINUE TO MONITOR.
--- NOTE | 2019-05-30 03:14 | NUR ---
PT SLEEPING IN BED COMFORTABLY. NO SIGNS OF RESP DISTRESS. EVEN CHEST RISE. ROOM AIR. WILL CONTINUE TO MONITOR.
--- NOTE | 2019-05-30 05:50 | NUR ---
PT IS AWAKE IN BED RESTING. STATES SHE IS UNABLE TO SLEEP TOO WELL THROUGH THE NIGHT. WILL CONTINUE TO MONITOR.
[2019-05-30 06:24] LABS: MAGNESIUM 2.1 mg/dL (1.8-2.4)
[2019-05-30] MEDS ORDERED: NON-FORMULARY ITEM (Lansoprazole* (Prevacid 24Hr*) 30 MG) PO SCH (06:30)
[2019-05-30 06:33] LABS: BASOPHILS % (AUTO) 0.1 % (0.0-2.0); HEMATOCRIT 30.8 % (36-48); HEMOGLOBIN 9.8 g/dL (12.0-16.0); LYMPHOCYTES # (AUTO) 0.6 K/uL (2.5-16.5); LYMPHOCYTES % (AUTO) 12.1 % (20.5-51.1); MEAN CORPUSCULAR HEMOGLOBIN 26 pg (27-31); MEAN CORPUSCULAR HGB CONC 32 g/dL (33-37); MEAN CORPUSCULAR VOLUME 81.9 fL (80-94); MONOCYTES # (AUTO) 0.1 K/uL (0.8-1.0); MONOCYTES % (AUTO) 2.7 % (1.7-9.3); NEUTROPHILS # (AUTO) 4.3 K/uL (1.8-7.7); NEUTROPHILS % (AUTO) 85.1 % (42.2-75.2); PLATELET COUNT (AUTO) 338 K/uL (140-450); RED BLOOD CELL COUNT(AUTO) 3.77 MIL/uL (4.20-5.40); RED CELL DISTRIBUTION WIDTH 22.2 % (11.6-13.7); WHITE BLOOD COUNT (AUTO) 5.1 K/uL (4.8-10.8)
[2019-05-30 06:43] LABS: ANION GAP 16.3 (8-16); CARBON DIOXIDE 24.6 mmol/L (21-32); POTASSIUM 3.9 mmol/L (3.5-5.1)
--- NOTE | 2019-05-30 06:52 | NUR ---
WILL ENDORSE PT TO [facility]. PT IN STABLE CONDITION. BED IN LOW POSITION. CALL LIGHT WITHIN REACH. WILL CONTINUE TO MONITOR.
--- NOTE | 2019-05-30 07:10 | NUR ---
RECEIVED PT FROM INSTRUMENTS SALES REPRESENTATIVE NURSE, PT IS AWAKE AND SEATED ON THE BED WITH SIDE RAILS UP AND CALL LIGHT WITHIN REACH, PT HAS AN IV LINE ON THE LEFT HAND G.22 WITH NS INFUSING AT 60ML/HR, INTACT, PT DENIES SOB AND NO SIGN OF DISTRESS NOTED . WILL CONTINUE TO MONITOR PT.
[2019-05-30] MEDS ORDERED: PANTOPRAZOLE 40 MG TABEC PO SCH (07:30)
[2019-05-30] MEDS: ALBUTEROL SULFATE/IPRATROPIU 3 ML SOL IH SCH ×2 (07:49→13:50)
--- NOTE | 2019-05-30 08:00 | NUR ---
PT IS AWAKE AND LYING ON THE BED VITAL SIGNS TAKEN AND BP IS 115/50, PULSE IS 80, O2 SATURATION IS 94% AT ROOM AIR AND TEMPERATURE IS 98.1, PT DENIES SOB AND NO SIGN OF DISTRESS NOTED. WILL MONITOR PT.
[2019-05-30] MEDS ORDERED: LOSARTAN POTASSIUM 50 MG PO SCH (09:00)
[2019-05-30] MEDS ORDERED: LACTOBACILLUS RHAMNOSUS GG 1 EACH CAP PO SCH (09:00)
[2019-05-30] MEDS ORDERED: HYDROCHLOROTHIAZIDE 25 MG TAB PO SCH (09:00)
[2019-05-30] MEDS ORDERED: ATORVASTATIN 20 MG TAB PO SCH (09:00)
[2019-05-30] MEDS ORDERED: LOSARTAN 50 MG TAB PO SCH (09:00)
[2019-05-30] MEDS ORDERED: NON-FORMULARY ITEM (Rosuvastatin Calcium* (Crestor*) 10 MG) PO SCH (09:00)
[2019-05-30] MEDS: NACL 0.9% 1,000 ML IV SCH (09:40)
--- NOTE | 2019-05-30 09:40 | NUR ---
PATIENT HAS BEEN SCREENED AND CATEGORIZED MODERATE NUTRITION RISK. PATIENT WILL BE SEEN WITHIN 3-5 DAYS OF ADMISSION. 05/30/[address]
--- NOTE | 2019-05-30 09:42 | NUR ---
PT IS AWAKE AND LYING ON THE BED, V/S CHECKED AND BP IS 110/62, PULSE IS 98 AND O2 SATURATION IS 94%, BP MEDICATIONS WERE NOT GIVEN BUT THE OTHER AM MEDICATIONS WERE TAKEN BY PT. PER BP RESULT. WILL CONTINUE TO MONITOR PT.
[2019-05-30] MEDS ORDERED: PRON INH (09:57)
[2019-05-30] MEDS ORDERED: GUAI400T29 PO (10:07)
--- NOTE | 2019-05-30 14:15 | NUR ---
DISCHARGED PT TO HOME VIA WHEELCHAIR ACCOMPANIED BY YANIRA ANGUIANO, TEACHINGS AND INSTRUCTIONS GIVEN TO PT AND VERBALIZED UNDERSTANDING. IV AND ARM BANDS REMOVED AND PT IS STABLE AT THIS TIME.
[2019-05-30] MEDS ORDERED: AZITHROMYCIN 250 MG TAB PO SCH (21:00)
== END 2019-05-30 14:15 | disposition home or self-care (01) | DRG 191 ==
LOC: MED 13:03 → MTU 16:42
PROVIDERS: ADMIT General Practice; ATTEND General Practice
DX: J44.1 Chronic obstructive pulmonary disease with (acute) exacerbation (principal); E44.1 Mild protein-calorie malnutrition; I10 Essential (primary) hypertension; K21.9 Gastro-esophageal reflux disease without esophagitis; E78.5 Hyperlipidemia, unspecified; D64.9 Anemia, unspecified; E05.90 Thyrotoxicosis, unspecified without thyrotoxic crisis or storm; E66.9 Obesity, unspecified; J06.9 Acute upper respiratory infection, unspecified; Z68.35 Body mass index [BMI] 35.0-35.9, adult; Z88.0 Allergy status to penicillin; Z87.891 Personal history of nicotine dependence
CPT/HCPCS: 36415; 71045; 80048; 80053; 80305; 81001; 82150; 83036; 83605; 83690; 83735; 83880; 84100; 84439; 84443; 84484; 85025; 85379; 85610; 85730; 86886; 86900; 86901; 87040; 87081; 93970; 94640; 96365; 96375; 99285; J0696; J1956; J2930; J7030; J7060; J7620; Q0092

== ENCOUNTER 2019-06-17 11:35 | Outpatient (CLI) | payer OTHER ==
[~2019-06-17 11:35] MED LIST changes: +BUDE1AER IH; +DOCU-299 PO; +FOLI1TAB90 PO; +GUAI400T29 PO; +PROM118S4 PO; +PRON INH; +ROSU10TA1 PO; -ROSU5TAB PO; -VITA1TAB44 PO
[2019-06-17 13:03] LABS: THYROID STIMULATING HORMONE < 0.01 uIU/mL (0.34-3.74)
[2019-06-18 06:08] LABS: T4 (THYROXINE) 8.3 ug/dL (4.5-12.0)
== END 2019-06-17 20:30 | disposition home or self-care (01) ==
LOC: MLB 11:35
PROVIDERS: ATTEND Family Medicine
DX: Z13.29 Encounter for screening for other suspected endocrine disorder (principal); E04.1 Nontoxic single thyroid nodule
CPT/HCPCS: 36415; 76536; 84436; 84439; 84443; 84479; Q0092

== ENCOUNTER 2019-07-08 15:39 | Outpatient (CLI) | payer OTHER ==
[2019-07-08 16:24] LABS: BASOPHILS # (AUTO) 0.1 K/uL (0.00-0.22); BASOPHILS % (AUTO) 0.8 % (0.0-2.0); EOSINOPHILS # (AUTO) 0.4 K/uL (0-0.4); EOSINOPHILS % (AUTO) 5.4 % (0.0-4.0); HEMATOCRIT 35.5 % (36-48); HEMOGLOBIN 11.5 g/dL (12.0-16.0); LYMPHOCYTES # (AUTO) 1.4 K/uL (2.5-16.5); LYMPHOCYTES % (AUTO) 19.2 % (20.5-51.1); MEAN CORPUSCULAR HEMOGLOBIN 28 pg (27-31); MEAN CORPUSCULAR HGB CONC 32 g/dL (33-37); MEAN CORPUSCULAR VOLUME 85.3 fL (80-94); MONOCYTES # (AUTO) 0.6 K/uL (0.8-1.0); MONOCYTES % (AUTO) 7.8 % (1.7-9.3); NEUTROPHILS % (AUTO) 66.8 % (42.2-75.2); PLATELET COUNT (AUTO) 289 K/uL (140-450); RED BLOOD CELL COUNT(AUTO) 4.16 MIL/uL (4.20-5.40); RED CELL DISTRIBUTION WIDTH 19.7 % (11.6-13.7); WHITE BLOOD COUNT (AUTO) 7.5 K/uL (4.8-10.8)
== END 2019-07-08 22:37 | disposition home or self-care (01) ==
LOC: MLB 15:39
PROVIDERS: ATTEND Family Medicine
DX: D64.9 Anemia, unspecified (principal)
CPT/HCPCS: 36415; 84132; 85025

== ENCOUNTER 2019-08-09 13:35 | Outpatient (CLI) | payer OTHER ==
[2019-08-09 14:12] LABS: BASOPHILS # (AUTO) 0.1 K/uL (0.00-0.22); EOSINOPHILS % (AUTO) 12.6 % (0.0-4.0); HEMOGLOBIN 12.8 g/dL (12.0-16.0); LYMPHOCYTES # (AUTO) 1.3 K/uL (2.5-16.5); LYMPHOCYTES % (AUTO) 16.6 % (20.5-51.1); MEAN CORPUSCULAR HEMOGLOBIN 29 pg (27-31); MEAN CORPUSCULAR HGB CONC 33 g/dL (33-37); MEAN CORPUSCULAR VOLUME 87.7 fL (80-94); MONOCYTES # (AUTO) 0.5 K/uL (0.8-1.0); NEUTROPHILS # (AUTO) 4.8 K/uL (1.8-7.7); NEUTROPHILS % (AUTO) 62.8 % (42.2-75.2); PLATELET COUNT (AUTO) 272 K/uL (140-450); RED BLOOD CELL COUNT(AUTO) 4.44 MIL/uL (4.20-5.40); WHITE BLOOD COUNT (AUTO) 7.7 K/uL (4.8-10.8)
[2019-08-09 15:27] LABS: THYROID STIMULATING HORMONE 0.01 uIU/mL (0.34-3.74)
== END 2019-08-09 20:36 | disposition home or self-care (01) ==
LOC: MLB 13:35
DX: E04.1 Nontoxic single thyroid nodule (principal)
CPT/HCPCS: 36415; 82728; 83540; 84443; 85025

== ENCOUNTER 2019-10-03 13:28 | Outpatient (CLI) | payer OTHER | END 2019-10-03 20:17 | disposition home or self-care (01) | LOC: MRD 13:28 | PROVIDERS: ATTEND Neuromusculoskeletal Medicine, Sports Medicine | DX: S52.121D Displaced fracture of head of right radius, subsequent encounter for closed fracture with routine healing (principal); X58.XXXD Exposure to other specified factors, subsequent encounter; R60.0 Localized edema | CPT/HCPCS: 73080 ==

== ENCOUNTER 2019-10-19 09:19 | Outpatient (CLI) | payer OTHER ==
[2019-10-19 11:25] LABS: BASOPHILS # (AUTO) 0.1 K/uL (0.00-0.22); BASOPHILS % (AUTO) 0.6 % (0.0-2.0); EOSINOPHILS # (AUTO) 0.4 K/uL (0-0.4); EOSINOPHILS % (AUTO) 4.5 % (0.0-4.0); HEMOGLOBIN 12.4 g/dL (12.0-16.0); LYMPHOCYTES # (AUTO) 1.2 K/uL (2.5-16.5); LYMPHOCYTES % (AUTO) 15.7 % (20.5-51.1); MEAN CORPUSCULAR HEMOGLOBIN 32 pg (27-31); MEAN CORPUSCULAR HGB CONC 33 g/dL (33-37); MEAN CORPUSCULAR VOLUME 94.6 fL (80-94); MONOCYTES # (AUTO) 0.5 K/uL (0.8-1.0); MONOCYTES % (AUTO) 6.3 % (1.7-9.3); NEUTROPHILS # (AUTO) 5.7 K/uL (1.8-7.7); NEUTROPHILS % (AUTO) 72.9 % (42.2-75.2); PLATELET COUNT (AUTO) 303 K/uL (140-450); RED BLOOD CELL COUNT(AUTO) 3.92 MIL/uL (4.20-5.40); RED CELL DISTRIBUTION WIDTH 14.1 % (11.6-13.7); WHITE BLOOD COUNT (AUTO) 7.9 K/uL (4.8-10.8)
[2019-10-19 14:00] LABS: ANION GAP 12.6 (8-16); CARBON DIOXIDE 28.8 mmol/L (21-32); POTASSIUM 4.4 mmol/L (3.5-5.1)
[2019-10-19 14:01] LABS: CREATININE 0.7 mg/dL (0.6-1.3); TOTAL BILIRUBIN 0.6 mg/dL (0.0-1.0)
[2019-10-19 14:02] LABS: ALBUMIN 3.4 g/dL (3.4-5.0)
[2019-10-19 14:03] LABS: CHOL/HDL RATIO 3.4 (1-4.5); FREE T4 (FREE THYROXINE) 0.93 ng/dL (0.76-1.46); THYROID STIMULATING HORMONE 0.02 uIU/mL (0.34-3.74)
== END 2019-10-19 21:59 | disposition home or self-care (01) ==
LOC: MLB 09:19
DX: E78.00 Pure hypercholesterolemia, unspecified (principal); E55.9 Vitamin D deficiency, unspecified; I10 Essential (primary) hypertension; R73.09 Other abnormal glucose; D50.0 Iron deficiency anemia secondary to blood loss (chronic)
CPT/HCPCS: 36415; 80053; 83036; 83540; 84439; 84443; 84480; 85025

== ENCOUNTER 2020-01-30 09:12 | Outpatient (CLI) | payer OTHER ==
[2020-01-31 06:25] LABS: T4 FREE (DIRECT) 0.98 ng/dL (0.82-1.77)
== END 2020-01-30 21:51 | disposition home or self-care (01) ==
LOC: MLB 09:12
DX: E05.90 Thyrotoxicosis, unspecified without thyrotoxic crisis or storm (principal); R73.09 Other abnormal glucose
CPT/HCPCS: 36415; 83036; 84439; 84443

== ENCOUNTER 2020-05-14 10:24 | Outpatient (CLI) | payer OTHER ==
[2020-05-14 11:23] LABS: BASOPHILS % (AUTO) 0.6 % (0.0-2.0); EOSINOPHILS # (AUTO) 0.4 K/uL (0-0.4); EOSINOPHILS % (AUTO) 6.1 % (0.0-4.0); LYMPHOCYTES # (AUTO) 1.4 K/uL (2.5-16.5); LYMPHOCYTES % (AUTO) 19.2 % (20.5-51.1); MEAN CORPUSCULAR HEMOGLOBIN 26 pg (27-31); MEAN CORPUSCULAR HGB CONC 31 g/dL (33-37); MEAN CORPUSCULAR VOLUME 83.1 fL (80-94); MONOCYTES # (AUTO) 0.5 K/uL (0.8-1.0); NEUTROPHILS # (AUTO) 4.9 K/uL (1.8-7.7); NEUTROPHILS % (AUTO) 67.1 % (42.2-75.2); PLATELET COUNT (AUTO) 345 K/uL (140-450); RED BLOOD CELL COUNT(AUTO) 3.85 MIL/uL (4.20-5.40); RED CELL DISTRIBUTION WIDTH 15.1 % (11.6-13.7); WHITE BLOOD COUNT (AUTO) 7.2 K/uL (4.8-10.8)
[2020-05-14 11:53] LABS: ALBUMIN 3.4 g/dL (3.4-5.0); ANION GAP 13.5 (8-16); CARBON DIOXIDE 26.9 mmol/L (21-32); CHOL/HDL RATIO 3.6 (1-4.5); CREATININE 0.8 mg/dL (0.6-1.3); POTASSIUM 4.4 mmol/L (3.5-5.1); THYROID STIMULATING HORMONE 2.96 uIU/mL (0.34-3.74); TOTAL BILIRUBIN 0.4 mg/dL (0.0-1.0)
[2020-05-15 07:17] LABS: T4 FREE (DIRECT) 0.88 ng/dL (0.82-1.77)
== END 2020-05-14 15:01 | disposition home or self-care (01) ==
LOC: MLB 10:24
DX: E78.00 Pure hypercholesterolemia, unspecified (principal); I10 Essential (primary) hypertension; R73.09 Other abnormal glucose; E66.01 Morbid (severe) obesity due to excess calories; E05.20 Thyrotoxicosis with toxic multinodular goiter without thyrotoxic crisis or storm
CPT/HCPCS: 36415; 80053; 83036; 84439; 84443; 85025

== ENCOUNTER 2020-05-22 12:03 | Outpatient (CLI) | payer OTHER | END 2020-05-22 22:03 | disposition home or self-care (01) | LOC: MUS 12:03 | DX: E04.2 Nontoxic multinodular goiter (principal) | CPT/HCPCS: 76536; Q0092 ==

== ENCOUNTER 2020-05-31 10:02 | Outpatient (CLI) | payer OTHER ==
[~2020-05-31 10:02] MED LIST changes: -PROM118S4 PO; +PROM118S5 PO
[2020-05-31 10:46] LABS: BASOPHILS # (AUTO) 0.1 K/uL (0.00-0.22); BASOPHILS % (AUTO) 1.5 % (0.0-2.0); EOSINOPHILS # (AUTO) 0.5 K/uL (0-0.4); HEMATOCRIT 32.6 % (36-48); HEMOGLOBIN 10.2 g/dL (12.0-16.0); LYMPHOCYTES # (AUTO) 1.4 K/uL (2.5-16.5); MEAN CORPUSCULAR HEMOGLOBIN 26 pg (27-31); MEAN CORPUSCULAR HGB CONC 31 g/dL (33-37); MEAN CORPUSCULAR VOLUME 81.8 fL (80-94); MONOCYTES # (AUTO) 0.5 K/uL (0.8-1.0); NEUTROPHILS # (AUTO) 4.2 K/uL (1.8-7.7); NEUTROPHILS % (AUTO) 62.5 % (42.2-75.2); PLATELET COUNT (AUTO) 311 K/uL (140-450); RED BLOOD CELL COUNT(AUTO) 3.99 MIL/uL (4.20-5.40); RED CELL DISTRIBUTION WIDTH 15.2 % (11.6-13.7); WHITE BLOOD COUNT (AUTO) 6.8 K/uL (4.8-10.8)
[2020-05-31 11:08] LABS: ALBUMIN 3.3 g/dL (3.4-5.0); BILIRUBIN,DIRECT 0.1 mg/dL (0.0-0.3); TOTAL BILIRUBIN 0.5 mg/dL (0.0-1.0)
[2020-05-31 11:09] LABS: PROTHROMBIN TIME 9.9 secs (10.8-13.4)
== END 2020-05-31 19:42 | disposition home or self-care (01) ==
LOC: MLB 10:02
PROVIDERS: ATTEND Family Medicine
DX: D64.9 Anemia, unspecified (principal); R06.02 Shortness of breath
CPT/HCPCS: 36415; 80076; 85025; 85610; 85730

== ENCOUNTER 2020-06-19 11:39 | Outpatient (CLI) | payer OTHER ==
[2020-06-20 08:15] LABS: FOLIC ACID > 20.00 ng/mL (>3.0)
== END 2020-06-19 21:43 | disposition home or self-care (01) ==
LOC: MLB 11:39
PROVIDERS: ATTEND Internal Medicine Cardiovascular Disease
DX: E61.1 Iron deficiency (principal)
CPT/HCPCS: 36415; 82607; 82746; 83540

== ENCOUNTER 2020-07-24 09:18 | Outpatient (CLI) | payer OTHER ==
[2020-07-24 09:37] LABS: BASOPHILS # (AUTO) 0.1 K/uL (0.00-0.22); BASOPHILS % (AUTO) 1.2 % (0.0-2.0); EOSINOPHILS # (AUTO) 0.3 K/uL (0-0.4); EOSINOPHILS % (AUTO) 4.7 % (0.0-4.0); HEMATOCRIT 35.5 % (36-48); HEMOGLOBIN 11.4 g/dL (12.0-16.0); LYMPHOCYTES # (AUTO) 1.4 K/uL (2.5-16.5); LYMPHOCYTES % (AUTO) 18.9 % (20.5-51.1); MEAN CORPUSCULAR HEMOGLOBIN 27 pg (27-31); MEAN CORPUSCULAR HGB CONC 32 g/dL (33-37); MEAN CORPUSCULAR VOLUME 83.3 fL (80-94); MONOCYTES # (AUTO) 0.6 K/uL (0.8-1.0); MONOCYTES % (AUTO) 8.4 % (1.7-9.3); NEUTROPHILS # (AUTO) 4.8 K/uL (1.8-7.7); NEUTROPHILS % (AUTO) 66.8 % (42.2-75.2); PLATELET COUNT (AUTO) 306 K/uL (140-450); RED BLOOD CELL COUNT(AUTO) 4.27 MIL/uL (4.20-5.40); RED CELL DISTRIBUTION WIDTH 19.7 % (11.6-13.7); WHITE BLOOD COUNT (AUTO) 7.1 K/uL (4.8-10.8)
== END 2020-07-24 18:07 | disposition home or self-care (01) ==
LOC: MLB 09:18
PROVIDERS: ATTEND Family Medicine
DX: D64.9 Anemia, unspecified (principal)
CPT/HCPCS: 36415; 85025

== ENCOUNTER 2020-07-27 14:28 | Emergency (ER) | payer OTHER ==
[~2020-07-27] VITALS: Ht 157.5 cm; Wt 94.3 kg
[2020-07-27 14:33] VITALS: BP 161/84
--- NOTE | 2020-07-27 14:52 | NUR ---
65 YEAR OLD FEMALE COMPLAINS OF LEFT SIDED FLANK PAIN THAT RADIATES TO THE LEFT LOWER ABDOMEN SINCE 4AM. PT STATES SHE HAS NAUSEA, BUT NOT VOMITTED. PT DENIES PROBLEMS WITH URINATION OR DEFECATION. PT AOX4, BREATHING EVEN AND UNLABORED, SKIN WARM AND DRY. BED IN LOWEST POSITION, LOCKED, BED RAIL UPX1. PMH - HTN, DM2, COPD, ASTHMA, HIATAL HERNIA, ALLERGIES - PCN
[2020-07-27] MEDS ORDERED: NACL 0.9% 1,000 ML IV SCH (14:54)
[2020-07-27] MEDS ORDERED: ONDANSETRON 4 MG/2 ML VIAL IVP ONE (14:55)
[2020-07-27 15:16] LABS: BASOPHILS # (AUTO) 0.1 K/uL (0.00-0.22); BASOPHILS % (AUTO) 0.6 % (0.0-2.0); EOSINOPHILS # (AUTO) 0.1 K/uL (0-0.4); EOSINOPHILS % (AUTO) 1.4 % (0.0-4.0); HEMATOCRIT 36.3 % (36-48); HEMOGLOBIN 11.8 g/dL (12.0-16.0); LYMPHOCYTES # (AUTO) 1.1 K/uL (2.5-16.5); LYMPHOCYTES % (AUTO) 10.1 % (20.5-51.1); MEAN CORPUSCULAR HEMOGLOBIN 27 pg (27-31); MEAN CORPUSCULAR HGB CONC 32 g/dL (33-37); MEAN CORPUSCULAR VOLUME 83.8 fL (80-94); MONOCYTES # (AUTO) 0.6 K/uL (0.8-1.0); MONOCYTES % (AUTO) 5.5 % (1.7-9.3); NEUTROPHILS # (AUTO) 8.7 K/uL (1.8-7.7); NEUTROPHILS % (AUTO) 82.4 % (42.2-75.2); PLATELET COUNT (AUTO) 319 K/uL (140-450); RED BLOOD CELL COUNT(AUTO) 4.34 MIL/uL (4.20-5.40); RED CELL DISTRIBUTION WIDTH 19.3 % (11.6-13.7); WHITE BLOOD COUNT (AUTO) 10.6 K/uL (4.8-10.8)
--- NOTE | 2020-07-27 15:30 | NUR ---
PT ALERT AND AWAKE, BREATHING EVEN AND UNLABORED. NO DISTRESS NOTED. STATES HER PAIN IS DOING FINE AND NO NAUSEA
[2020-07-27 15:36] LABS: ALBUMIN 3.6 g/dL (3.4-5.0); ANION GAP 12.7 (8-16); POTASSIUM 3.7 mmol/L (3.5-5.1); TOTAL BILIRUBIN 0.5 mg/dL (0.0-1.0)
[2020-07-27 16:13] LABS: BILIRUBIN,URINE NEGATIVE (NEGATIVE); BLOOD, URINE 2+ (NEGATIVE); COLOR,URINE YELLOW (YELLOW); LEUKOCYTE ESTERASE ,URINE 1+ (NEGATIVE); NITRITE, URINE NEGATIVE (NEGATIVE); PH,URINE 5.5 (5.0-9.0); UGLUCOSE NEGATIVE (NEGATIVE)
[2020-07-27 16:15] LABS: APPEARANCE,URINE HAZY (CLEAR)
[2020-07-27] MEDS ORDERED: cephALEXin 500 MG CAP PO ONE (16:20)
[2020-07-27 16:23] LABS: RBC,URINE 20-50 /HPF (0-5)
[2020-07-27 16:24] LABS: URIC ACID CRYSTALS,URINE 0-10 /HPF (None Seen); WBC,URINE 0-5 /HPF (0-5)
[2020-07-27 16:35] VITALS: BP 130/68
--- NOTE | 2020-07-27 16:35 | NUR ---
Patient discharged with v/s stable. Written and verbal after care instructions about urinary tract infection, hematuria, flank pain given and explained. Patient alert, oriented and verbalized understanding of instructions. Ambulatory with steady gait. All questions addressed prior to discharge. ID band removed. Patient advised to follow up with PMD. Rx of zofran, keflex, and lidoderm given. Patient educated on indication of medication including possible reaction and side effects. Opportunity to ask questions provided and answered.
== END 2020-07-27 16:35 | disposition home or self-care (01) ==
LOC: MED 14:28
DX: N39.0 Urinary tract infection, site not specified (principal); J44.9 Chronic obstructive pulmonary disease, unspecified; E11.9 Type 2 diabetes mellitus without complications; I11.0 Hypertensive heart disease with heart failure; E78.00 Pure hypercholesterolemia, unspecified; Z88.0 Allergy status to penicillin; Z79.899 Other long term (current) drug therapy
CPT/HCPCS: 36415; 74176; 80053; 81001; 82150; 83690; 85025; 87086; 96361; 96374; 99284; J2405; J7030; U0003

== ENCOUNTER → 2020-08-08 | Outpatient (CLI) | payer OTHER | END | disposition home or self-care (01) | LOC: MLB 12:49 | PROVIDERS: ATTEND Family Medicine | DX: M16.12 Unilateral primary osteoarthritis, left hip (principal); M25.511 Pain in right shoulder | CPT/HCPCS: 73030; 73502 ==

== ENCOUNTER 2020-08-29 11:09 | Outpatient (CLI) | payer OTHER ==
[2020-08-29 11:52] LABS: BASOPHILS # (AUTO) 0.1 K/uL (0.00-0.22); EOSINOPHILS # (AUTO) 0.3 K/uL (0-0.4); EOSINOPHILS % (AUTO) 3.5 % (0.0-4.0); HEMOGLOBIN 12.3 g/dL (12.0-16.0); LYMPHOCYTES # (AUTO) 1.3 K/uL (2.5-16.5); LYMPHOCYTES % (AUTO) 15.4 % (20.5-51.1); MEAN CORPUSCULAR HEMOGLOBIN 28 pg (27-31); MEAN CORPUSCULAR HGB CONC 32 g/dL (33-37); MEAN CORPUSCULAR VOLUME 86.3 fL (80-94); MONOCYTES # (AUTO) 0.8 K/uL (0.8-1.0); MONOCYTES % (AUTO) 8.7 % (1.7-9.3); NEUTROPHILS # (AUTO) 6.2 K/uL (1.8-7.7); NEUTROPHILS % (AUTO) 71.4 % (42.2-75.2); PLATELET COUNT (AUTO) 340 K/uL (140-450); RED CELL DISTRIBUTION WIDTH 18.2 % (11.6-13.7); WHITE BLOOD COUNT (AUTO) 8.6 K/uL (4.8-10.8)
== END 2020-08-29 20:34 | disposition home or self-care (01) ==
LOC: MLB 11:09
PROVIDERS: ATTEND Family Medicine
DX: D50.9 Iron deficiency anemia, unspecified (principal); K29.70 Gastritis, unspecified, without bleeding
CPT/HCPCS: 36415; 85025

== ENCOUNTER 2020-09-19 11:49 | Emergency (ER) | payer OTHER ==
[~2020-09-19] VITALS: Ht 154.9 cm; Wt 90.7 kg
[2020-09-19 11:58] VITALS: BP 120/57
[2020-09-19] MEDS ORDERED: KETOROLAC 30 MG/ML VIAL IVP ONE (12:25)
[2020-09-19] MEDS ORDERED: NACL 0.9% 500 ML IV ONE (12:25)
[2020-09-19 12:50] LABS: BASOPHILS # (AUTO) 0.1 K/uL (0.00-0.22); HEMOGLOBIN 11.1 g/dL (12.0-16.0); LYMPHOCYTES # (AUTO) 1.3 K/uL (2.5-16.5); MONOCYTES # (AUTO) 0.7 K/uL (0.8-1.0); NEUTROPHILS # (AUTO) 8.1 K/uL (1.8-7.7); WHITE BLOOD COUNT (AUTO) 10.3 K/uL (4.8-10.8)
[2020-09-19 12:56] LABS: BASOPHILS % (AUTO) 0.5 % (0.0-2.0); EOSINOPHILS # (AUTO) 0.1 K/uL (0-0.4); EOSINOPHILS % (AUTO) 1.1 % (0.0-4.0); HEMATOCRIT 34.2 % (36-48); LYMPHOCYTES % (AUTO) 12.2 % (20.5-51.1); MEAN CORPUSCULAR HEMOGLOBIN 28 pg (27-31); MEAN CORPUSCULAR HGB CONC 33 g/dL (33-37); MEAN CORPUSCULAR VOLUME 85.9 fL (80-94); MONOCYTES % (AUTO) 7.1 % (1.7-9.3); NEUTROPHILS % (AUTO) 79.1 % (42.2-75.2); PLATELET COUNT (AUTO) 375 K/uL (140-450); RED BLOOD CELL COUNT(AUTO) 3.98 MIL/uL (4.20-5.40); RED CELL DISTRIBUTION WIDTH 16.3 % (11.6-13.7)
[2020-09-19 13:02] LABS: ALBUMIN 3.5 g/dL (3.4-5.0); ANION GAP 12.2 (8-16); CARBON DIOXIDE 28.6 mmol/L (21-32); POTASSIUM 3.8 mmol/L (3.5-5.1); TOTAL BILIRUBIN 0.7 mg/dL (0.0-1.0)
[2020-09-19 15:51] LABS: APPEARANCE,URINE CLEAR (CLEAR); BILIRUBIN,URINE NEGATIVE (NEGATIVE); BLOOD, URINE NEGATIVE (NEGATIVE); COLOR,URINE YELLOW (YELLOW); LEUKOCYTE ESTERASE ,URINE TRACE (NEGATIVE); NITRITE, URINE NEGATIVE (NEGATIVE); UGLUCOSE NEGATIVE (NEGATIVE)
[2020-09-19 16:05] LABS: RBC,URINE 0-5 /HPF (0-5)
[2020-09-19] MEDS ORDERED: levoFLOXacin 750 MG TAB PO ONE (16:10)
[2020-09-19] MEDS ORDERED: SULFAMETH/TRIMETH DS 800/160MG 1 TAB PO ONE (16:10)
[2020-09-19 16:28] VITALS: BP 102/47
== END 2020-09-19 16:29 | disposition home or self-care (01) ==
LOC: MED 11:49
DX: N39.0 Urinary tract infection, site not specified (principal); K57.92 Diverticulitis of intestine, part unspecified, without perforation or abscess without bleeding; E07.9 Disorder of thyroid, unspecified; E11.9 Type 2 diabetes mellitus without complications; I10 Essential (primary) hypertension; J44.9 Chronic obstructive pulmonary disease, unspecified; J45.909 Unspecified asthma, uncomplicated; Z88.0 Allergy status to penicillin; Z79.899 Other long term (current) drug therapy; Z20.828 Contact with and (suspected) exposure to other viral communicable diseases
CPT/HCPCS: 36415; 71045; 74176; 76856; 80053; 81001; 83605; 85025; 87040; 87086; 87426; 96361; 96374; 99285; J1885; J7030; Q0092; U0003

== ENCOUNTER 2020-10-04 09:57 | Outpatient (CLI) | payer OTHER ==
[2020-10-04 10:26] LABS: BASOPHILS # (AUTO) 0.1 K/uL (0.00-0.22); BASOPHILS % (AUTO) 0.7 % (0.0-2.0); EOSINOPHILS # (AUTO) 0.3 K/uL (0-0.4); EOSINOPHILS % (AUTO) 3.9 % (0.0-4.0); HEMATOCRIT 30.1 % (36-48); HEMOGLOBIN 9.9 g/dL (12.0-16.0); LYMPHOCYTES # (AUTO) 1.1 K/uL (2.5-16.5); LYMPHOCYTES % (AUTO) 14.3 % (20.5-51.1); MEAN CORPUSCULAR HEMOGLOBIN 29 pg (27-31); MEAN CORPUSCULAR HGB CONC 33 g/dL (33-37); MEAN CORPUSCULAR VOLUME 86.5 fL (80-94); MONOCYTES # (AUTO) 0.5 K/uL (0.8-1.0); MONOCYTES % (AUTO) 6.7 % (1.7-9.3); NEUTROPHILS # (AUTO) 5.9 K/uL (1.8-7.7); NEUTROPHILS % (AUTO) 74.4 % (42.2-75.2); PLATELET COUNT (AUTO) 354 K/uL (140-450); RED BLOOD CELL COUNT(AUTO) 3.48 MIL/uL (4.20-5.40); RED CELL DISTRIBUTION WIDTH 15.8 % (11.6-13.7); WHITE BLOOD COUNT (AUTO) 7.9 K/uL (4.8-10.8)
[2020-10-04 10:50] LABS: ALBUMIN 3.4 g/dL (3.4-5.0); ANION GAP 16.5 (8-16); CHOL/HDL RATIO 2.8 (1-4.5); CREATININE 0.9 mg/dL (0.6-1.3); POTASSIUM 4.5 mmol/L (3.5-5.1); THYROID STIMULATING HORMONE 1.69 uIU/mL (0.34-3.74); TOTAL BILIRUBIN 0.4 mg/dL (0.0-1.0)
[2020-10-05 08:07] LABS: T4 FREE (DIRECT) 0.99 ng/dL (0.82-1.77)
== END 2020-10-04 20:42 | disposition home or self-care (01) ==
LOC: MLB 09:57
DX: E11.9 Type 2 diabetes mellitus without complications (principal); E66.01 Morbid (severe) obesity due to excess calories; I10 Essential (primary) hypertension; E78.2 Mixed hyperlipidemia; D50.0 Iron deficiency anemia secondary to blood loss (chronic)
CPT/HCPCS: 36415; 80053; 83036; 83540; 84439; 84443; 85025

== ENCOUNTER 2020-11-01 12:38 | Emergency (ER) | payer OTHER ==
[~2020-11-01] VITALS: Ht 157.5 cm; Wt 89.8 kg
[2020-11-01 12:43] VITALS: BP 127/78
--- NOTE | 2020-11-01 13:00 | NUR ---
Pt c/o left flank pain that radiates to left lower abd and vaginal pressure since 0900 today. medhx: HTN, DM, hypothyroid, hiatal hernia, kidney stones
--- NOTE | 2020-11-01 13:07 | NUR ---
Dr. Arcos at bedside for pt evaluation.
[2020-11-01] MEDS ORDERED: PHENAZOPYRIDINE 100 MG TAB PO ONE (13:20)
[2020-11-01] MEDS ORDERED: NACL 0.9% 1,000 ML IV ONE (13:20)
[2020-11-01] MEDS ORDERED: KETOROLAC 30 MG/ML VIAL IVP ONE ×2 (13:20→14:55)
--- NOTE | 2020-11-01 13:22 | NUR ---
Pt ambulated to bathroom for UA collection.
[2020-11-01 13:45] LABS: BASOPHILS # (AUTO) 0.1 K/uL (0.00-0.22); BASOPHILS % (AUTO) 1.3 % (0.0-2.0); EOSINOPHILS # (AUTO) 0.3 K/uL (0-0.4); EOSINOPHILS % (AUTO) 3.1 % (0.0-4.0); HEMATOCRIT 35.5 % (36-48); HEMOGLOBIN 11.3 g/dL (12.0-16.0); LYMPHOCYTES # (AUTO) 1.7 K/uL (2.5-16.5); LYMPHOCYTES % (AUTO) 15.9 % (20.5-51.1); MEAN CORPUSCULAR HEMOGLOBIN 28 pg (27-31); MEAN CORPUSCULAR HGB CONC 32 g/dL (33-37); MEAN CORPUSCULAR VOLUME 88.5 fL (80-94); MONOCYTES # (AUTO) 0.7 K/uL (0.8-1.0); MONOCYTES % (AUTO) 6.7 % (1.7-9.3); PLATELET COUNT (AUTO) 394 K/uL (140-450); RED BLOOD CELL COUNT(AUTO) 4.02 MIL/uL (4.20-5.40); RED CELL DISTRIBUTION WIDTH 15.5 % (11.6-13.7); WHITE BLOOD COUNT (AUTO) 10.9 K/uL (4.8-10.8)
--- NOTE | 2020-11-01 14:01 | NUR ---
Pt taken to CT scan via W/C.
[2020-11-01 14:10] LABS: ALBUMIN 3.9 g/dL (3.4-5.0); ANION GAP 14.4 (8-16); CREATININE 1.2 mg/dL (0.6-1.3); POTASSIUM 4.4 mmol/L (3.5-5.1); TOTAL BILIRUBIN 0.5 mg/dL (0.0-1.0)
[2020-11-01 14:51] LABS: APPEARANCE,URINE SL CLOUDY (CLEAR); BILIRUBIN,URINE NEGATIVE (NEGATIVE); BLOOD, URINE 2+ (NEGATIVE); COLOR,URINE YELLOW (YELLOW); LEUKOCYTE ESTERASE ,URINE 1+ (NEGATIVE); NITRITE, URINE NEGATIVE (NEGATIVE); PH,URINE 5.5 (5.0-9.0); UGLUCOSE NEGATIVE (NEGATIVE)
[2020-11-01] MEDS ORDERED: LEVOFLOXACIN 500 MG/D5W PREMIX 100 ML IV ONE (14:55)
[2020-11-01 16:03] VITALS: BP 158/93
--- NOTE | 2020-11-01 16:03 | NUR ---
Patient discharged with v/s stable. Written and verbal after care instructions given and explained. Patient alert, oriented and verbalized understanding of instructions. Ambulatory with steady gait. All questions addressed prior to discharge. ID band removed. Patient advised to follow up with PMD. Rx of phenazopyridine hydrochloride 100mg tab TID PO, naprosyn 500mg tab BID PO PRN pain, ciprofloxacin hydrochloride 500mg tab BID PO, and zofran ODT 1 tab q8h PRN nausea given. Patient educated on indication of medication including possible reaction and side effects. Opportunity to ask questions provided and answered.
[2020-11-01 16:57] LABS: RBC,URINE 11-20 (MOD) /HPF (0-5); WBC,URINE 0-5 /HPF (0-5)
== END 2020-11-01 16:03 | disposition home or self-care (01) ==
LOC: MED 12:38
DX: N23 Unspecified renal colic (principal); E11.9 Type 2 diabetes mellitus without complications; E07.9 Disorder of thyroid, unspecified; I10 Essential (primary) hypertension; I51.89 Other ill-defined heart diseases; J45.909 Unspecified asthma, uncomplicated; J44.9 Chronic obstructive pulmonary disease, unspecified; Z88.0 Allergy status to penicillin; Z98.890 Other specified postprocedural states; Z79.899 Other long term (current) drug therapy
CPT/HCPCS: 36415; 74176; 80053; 81001; 83690; 85025; 87086; 96361; 96365; 96375; 96376; 99284; J1885; J1956; J7030

== ENCOUNTER 2021-02-01 10:25 | Outpatient (CLI) | payer OTHER ==
[~2021-02-01 10:25] MED LIST changes: +HYDR-4004 PO; -ORE25 PO
[2021-02-01 11:01] LABS: BASOPHILS # (AUTO) 0.1 K/uL (0.00-0.22); BASOPHILS % (AUTO) 0.9 % (0.0-2.0); EOSINOPHILS # (AUTO) 0.9 K/uL (0-0.4); EOSINOPHILS % (AUTO) 11.3 % (0.0-4.0); HEMATOCRIT 32.8 % (36-48); HEMOGLOBIN 10.7 g/dL (12.0-16.0); LYMPHOCYTES # (AUTO) 1.3 K/uL (2.5-16.5); LYMPHOCYTES % (AUTO) 17.8 % (20.5-51.1); MEAN CORPUSCULAR HEMOGLOBIN 28 pg (27-31); MEAN CORPUSCULAR HGB CONC 33 g/dL (33-37); MEAN CORPUSCULAR VOLUME 86.8 fL (80-94); MONOCYTES # (AUTO) 0.6 K/uL (0.8-1.0); MONOCYTES % (AUTO) 7.7 % (1.7-9.3); NEUTROPHILS # (AUTO) 4.7 K/uL (1.8-7.7); NEUTROPHILS % (AUTO) 62.3 % (42.2-75.2); PLATELET COUNT (AUTO) 335 K/uL (140-450); RED BLOOD CELL COUNT(AUTO) 3.78 MIL/uL (4.20-5.40); RED CELL DISTRIBUTION WIDTH 14.8 % (11.6-13.7); WHITE BLOOD COUNT (AUTO) 7.5 K/uL (4.8-10.8)
[2021-02-01 11:28] LABS: ALBUMIN 3.4 g/dL (3.4-5.0); ANION GAP 16.1 (8-16); CARBON DIOXIDE 24.4 mmol/L (21-32); CHOL/HDL RATIO 2.9 (1-4.5); CREATININE 0.8 mg/dL (0.6-1.3); POTASSIUM 3.5 mmol/L (3.5-5.1); THYROID STIMULATING HORMONE 0.05 uIU/mL (0.34-3.74); TOTAL BILIRUBIN 0.4 mg/dL (0.0-1.0)
[2021-02-02 09:06] LABS: T4 FREE (DIRECT) 1.28 ng/dL (0.82-1.77)
== END 2021-02-01 19:34 | disposition home or self-care (01) ==
LOC: MLB 10:25
PROVIDERS: ATTEND Family Medicine
DX: I10 Essential (primary) hypertension (principal); E11.9 Type 2 diabetes mellitus without complications; E78.2 Mixed hyperlipidemia; D50.0 Iron deficiency anemia secondary to blood loss (chronic); E66.01 Morbid (severe) obesity due to excess calories
CPT/HCPCS: 36415; 80053; 83036; 83540; 84439; 84443; 85025

== ENCOUNTER 2021-04-02 11:13 | Outpatient (CLI) | payer OTHER ==
[~2021-04-02 11:13] MED LIST changes: +ALBU-118 IH; -ALBU-136 IH; -GUAI400T29 PO; +[UNRECOGNIZED DRUG - CODE] PO
== END 2021-04-02 19:18 | disposition home or self-care (01) ==
LOC: MUS 11:13
PROVIDERS: ATTEND Internal Medicine
DX: N20.0 Calculus of kidney (principal); K76.0 Fatty (change of) liver, not elsewhere classified
CPT/HCPCS: 76700

== ENCOUNTER 2021-05-27 10:16 | Outpatient (CLI) | payer OTHER ==
[~2021-05-27 10:16] MED LIST changes: +[UNRECOGNIZED DRUG - CODE] PO; -[UNRECOGNIZED DRUG - CODE] PO
[2021-05-27 11:32] LABS: BASOPHILS # (AUTO) 0.1 K/uL (0.00-0.22); BASOPHILS % (AUTO) 0.7 % (0.0-2.0); EOSINOPHILS # (AUTO) 0.6 K/uL (0-0.4); EOSINOPHILS % (AUTO) 7.6 % (0.0-4.0); HEMATOCRIT 36.1 % (36-48); HEMOGLOBIN 11.8 g/dL (12.0-16.0); LYMPHOCYTES # (AUTO) 1.3 K/uL (2.5-16.5); LYMPHOCYTES % (AUTO) 16.2 % (20.5-51.1); MEAN CORPUSCULAR HEMOGLOBIN 29 pg (27-31); MEAN CORPUSCULAR HGB CONC 33 g/dL (33-37); MEAN CORPUSCULAR VOLUME 88.6 fL (80-94); MONOCYTES # (AUTO) 0.5 K/uL (0.8-1.0); MONOCYTES % (AUTO) 6.6 % (1.7-9.3); NEUTROPHILS # (AUTO) 5.4 K/uL (1.8-7.7); NEUTROPHILS % (AUTO) 68.9 % (42.2-75.2); PLATELET COUNT (AUTO) 366 K/uL (140-450); RED BLOOD CELL COUNT(AUTO) 4.08 MIL/uL (4.20-5.40); RED CELL DISTRIBUTION WIDTH 14.6 % (11.6-13.7); WHITE BLOOD COUNT (AUTO) 7.9 K/uL (4.8-10.8)
[2021-05-27 11:56] LABS: ALBUMIN 3.7 g/dL (3.4-5.0); ANION GAP 9.7 (8-16); CARBON DIOXIDE 29.7 mmol/L (21-32); CHOL/HDL RATIO 3.6 (1-4.5); CREATININE 0.8 mg/dL (0.6-1.3); POTASSIUM 4.4 mmol/L (3.5-5.1); THYROID STIMULATING HORMONE 0.49 uIU/mL (0.34-3.74); TOTAL BILIRUBIN 0.5 mg/dL (0.0-1.0)
[2021-05-28 08:07] LABS: T4 FREE (DIRECT) 1.06 ng/dL (0.82-1.77)
== END 2021-05-27 19:49 | disposition home or self-care (01) ==
LOC: MLB 10:16
DX: E11.9 Type 2 diabetes mellitus without complications (principal); I10 Essential (primary) hypertension; E78.2 Mixed hyperlipidemia; E05.20 Thyrotoxicosis with toxic multinodular goiter without thyrotoxic crisis or storm; E66.01 Morbid (severe) obesity due to excess calories
CPT/HCPCS: 36415; 80053; 83036; 84439; 84443; 85025

== ENCOUNTER 2021-10-02 10:55 | Outpatient (CLI) | payer OTHER ==
[2021-10-02 12:52] LABS: BASOPHILS % (AUTO) 0.6 % (0.0-2.0); EOSINOPHILS # (AUTO) 0.3 K/uL (0-0.4); HEMATOCRIT 30.7 % (36-48); HEMOGLOBIN 10.3 g/dL (12.0-16.0); LYMPHOCYTES # (AUTO) 1.1 K/uL (2.5-16.5); LYMPHOCYTES % (AUTO) 15.3 % (20.5-51.1); MEAN CORPUSCULAR HEMOGLOBIN 30 pg (27-31); MEAN CORPUSCULAR HGB CONC 34 g/dL (33-37); MEAN CORPUSCULAR VOLUME 88.2 fL (80-94); MONOCYTES # (AUTO) 0.5 K/uL (0.8-1.0); MONOCYTES % (AUTO) 7.1 % (1.7-9.3); NEUTROPHILS # (AUTO) 5.2 K/uL (1.8-7.7); PLATELET COUNT (AUTO) 362 K/uL (140-450); RED BLOOD CELL COUNT(AUTO) 3.48 MIL/uL (4.20-5.40); RED CELL DISTRIBUTION WIDTH 15.7 % (11.6-13.7); WHITE BLOOD COUNT (AUTO) 7.1 K/uL (4.8-10.8)
[2021-10-02 13:36] LABS: ALBUMIN 3.4 g/dL (3.4-5.0); ANION GAP 12.4 (8-16); CARBON DIOXIDE 26.3 mmol/L (21-32); CHOL/HDL RATIO 3.9 (1-4.5); CREATININE 0.8 mg/dL (0.6-1.3); FREE T4 (FREE THYROXINE) 0.84 ng/dL (0.76-1.46); POTASSIUM 3.7 mmol/L (3.5-5.1); THYROID STIMULATING HORMONE 0.17 uIU/mL (0.34-3.74); TOTAL BILIRUBIN 0.3 mg/dL (0.0-1.0)
== END 2021-10-02 21:45 | disposition home or self-care (01) ==
LOC: MLB 10:55
PROVIDERS: ATTEND Specialist
DX: E11.69 Type 2 diabetes mellitus with other specified complication (principal); I10 Essential (primary) hypertension; E78.2 Mixed hyperlipidemia
CPT/HCPCS: 36415; 80053; 83036; 84439; 84443; 85025

== ENCOUNTER 2021-12-30 11:15 | Outpatient (CLI) | payer OTHER ==
[2021-12-30 12:03] LABS: BASOPHILS # (AUTO) 0.1 K/uL (0.00-0.22); BASOPHILS % (AUTO) 0.6 % (0.0-2.0); EOSINOPHILS # (AUTO) 0.2 K/uL (0-0.4); HEMATOCRIT 31.7 % (36-48); HEMOGLOBIN 10.3 g/dL (12.0-16.0); LYMPHOCYTES # (AUTO) 1.8 K/uL (2.5-16.5); LYMPHOCYTES % (AUTO) 18.1 % (20.5-51.1); MEAN CORPUSCULAR HEMOGLOBIN 27 pg (27-31); MEAN CORPUSCULAR HGB CONC 32 g/dL (33-37); MEAN CORPUSCULAR VOLUME 82.5 fL (80-94); MONOCYTES # (AUTO) 0.9 K/uL (0.8-1.0); MONOCYTES % (AUTO) 9.4 % (1.7-9.3); NEUTROPHILS # (AUTO) 6.9 K/uL (1.8-7.7); NEUTROPHILS % (AUTO) 69.9 % (42.2-75.2); PLATELET COUNT (AUTO) 430 K/uL (140-450); RED BLOOD CELL COUNT(AUTO) 3.85 MIL/uL (4.20-5.40); RED CELL DISTRIBUTION WIDTH 16.7 % (11.6-13.7); WHITE BLOOD COUNT (AUTO) 9.9 K/uL (4.8-10.8)
[2021-12-30 13:48] LABS: FREE T4 (FREE THYROXINE) 1.09 ng/dL (0.76-1.46); THYROID STIMULATING HORMONE 0.04 uIU/mL (0.34-3.74)
[2022-01-01 06:07] LABS: FOLIC ACID > 20.00 ng/mL (>3.0)
== END 2021-12-30 21:46 | disposition home or self-care (01) ==
LOC: MLB 11:15
PROVIDERS: ATTEND Family Medicine Geriatric Medicine
DX: E11.9 Type 2 diabetes mellitus without complications (principal); E53.9 Vitamin B deficiency, unspecified; E05.90 Thyrotoxicosis, unspecified without thyrotoxic crisis or storm; D50.9 Iron deficiency anemia, unspecified
CPT/HCPCS: 36415; 82607; 82746; 83036; 84439; 84443; 85025

== ENCOUNTER 2022-01-28 11:44 | Outpatient (CLI) | payer OTHER ==
[2022-01-28 12:40] LABS: BASOPHILS % (AUTO) 0.4 % (0.0-2.0); EOSINOPHILS # (AUTO) 0.2 K/uL (0-0.4); EOSINOPHILS % (AUTO) 2.4 % (0.0-4.0); HEMATOCRIT 27.5 % (36-48); HEMOGLOBIN 8.8 g/dL (12.0-16.0); LYMPHOCYTES % (AUTO) 16.5 % (20.5-51.1); MEAN CORPUSCULAR HEMOGLOBIN 25 pg (27-31); MEAN CORPUSCULAR HGB CONC 32 g/dL (33-37); MEAN CORPUSCULAR VOLUME 79.4 fL (80-94); MONOCYTES # (AUTO) 0.5 K/uL (0.8-1.0); MONOCYTES % (AUTO) 8.5 % (1.7-9.3); NEUTROPHILS # (AUTO) 4.5 K/uL (1.8-7.7); NEUTROPHILS % (AUTO) 72.2 % (42.2-75.2); PLATELET COUNT (AUTO) 417 K/uL (140-450); RED BLOOD CELL COUNT(AUTO) 3.46 MIL/uL (4.20-5.40); RED CELL DISTRIBUTION WIDTH 16.3 % (11.6-13.7); WHITE BLOOD COUNT (AUTO) 6.3 K/uL (4.8-10.8)
[2022-01-28 13:10] LABS: ALBUMIN 3.4 g/dL (3.4-5.0); ANION GAP 12.3 (8-16); CARBON DIOXIDE 27.3 mmol/L (21-32); CHOL/HDL RATIO 4.3 (1-4.5); CREATININE 0.6 mg/dL (0.6-1.3); POTASSIUM 3.6 mmol/L (3.5-5.1); THYROID STIMULATING HORMONE 0.01 uIU/mL (0.34-3.74); TOTAL BILIRUBIN 0.5 mg/dL (0.0-1.0)
[2022-01-29 09:06] LABS: MICROALBUMIN, UR RANDOM 124.6 ug/mL (Not Estab.)
[2022-01-29 10:06] LABS: T4 FREE (DIRECT) 1.33 ng/dL (0.82-1.77)
== END 2022-01-28 20:08 | disposition home or self-care (01) ==
LOC: MLB 11:44
PROVIDERS: ATTEND Family Medicine
DX: I10 Essential (primary) hypertension (principal); E11.69 Type 2 diabetes mellitus with other specified complication; E78.2 Mixed hyperlipidemia
CPT/HCPCS: 36415; 80053; 82043; 83036; 84439; 84443; 85025

== ENCOUNTER 2022-02-12 11:13 | Outpatient (CLI) | payer OTHER ==
[2022-02-12 12:00] LABS: BASOPHILS # (AUTO) 0.1 K/uL (0.00-0.22); BASOPHILS % (AUTO) 0.9 % (0.0-2.0); EOSINOPHILS # (AUTO) 0.3 K/uL (0-0.4); EOSINOPHILS % (AUTO) 3.7 % (0.0-4.0); HEMATOCRIT 31.3 % (36-48); HEMOGLOBIN 9.9 g/dL (12.0-16.0); LYMPHOCYTES # (AUTO) 1.2 K/uL (2.5-16.5); LYMPHOCYTES % (AUTO) 15.6 % (20.5-51.1); MEAN CORPUSCULAR HEMOGLOBIN 25 pg (27-31); MEAN CORPUSCULAR HGB CONC 32 g/dL (33-37); MEAN CORPUSCULAR VOLUME 77.9 fL (80-94); MONOCYTES # (AUTO) 0.5 K/uL (0.8-1.0); MONOCYTES % (AUTO) 6.7 % (1.7-9.3); NEUTROPHILS # (AUTO) 5.6 K/uL (1.8-7.7); NEUTROPHILS % (AUTO) 73.1 % (42.2-75.2); PLATELET COUNT (AUTO) 396 K/uL (140-450); RED BLOOD CELL COUNT(AUTO) 4.03 MIL/uL (4.20-5.40); WHITE BLOOD COUNT (AUTO) 7.6 K/uL (4.8-10.8)
[2022-02-13 08:08] LABS: FOLIC ACID > 20.00 ng/mL (>3.0)
[2022-02-13 22:20] LABS: FERRITIN 11 ng/mL (15 - 150)
== END 2022-02-12 20:54 | disposition home or self-care (01) ==
LOC: MLB 11:13
PROVIDERS: ATTEND Family Medicine
DX: D64.9 Anemia, unspecified (principal)
CPT/HCPCS: 36415; 82607; 82728; 82746; 83540; 85025; 85045

== ENCOUNTER 2022-03-06 11:37 | Outpatient (CLI) | payer OTHER ==
[2022-03-06 13:11] LABS: BASOPHILS % (AUTO) 0.6 % (0.0-2.0); EOSINOPHILS # (AUTO) 0.2 K/uL (0-0.4); EOSINOPHILS % (AUTO) 3.9 % (0.0-4.0); HEMATOCRIT 30.3 % (36-48); HEMOGLOBIN 9.8 g/dL (12.0-16.0); LYMPHOCYTES # (AUTO) 1.1 K/uL (2.5-16.5); LYMPHOCYTES % (AUTO) 17.4 % (20.5-51.1); MEAN CORPUSCULAR HEMOGLOBIN 26 pg (27-31); MEAN CORPUSCULAR HGB CONC 32 g/dL (33-37); MEAN CORPUSCULAR VOLUME 80.8 fL (80-94); MONOCYTES # (AUTO) 0.4 K/uL (0.8-1.0); NEUTROPHILS # (AUTO) 4.5 K/uL (1.8-7.7); NEUTROPHILS % (AUTO) 71.1 % (42.2-75.2); PLATELET COUNT (AUTO) 297 K/uL (140-450); RED BLOOD CELL COUNT(AUTO) 3.76 MIL/uL (4.20-5.40); RED CELL DISTRIBUTION WIDTH 18.1 % (11.6-13.7); WHITE BLOOD COUNT (AUTO) 6.3 K/uL (4.8-10.8)
[2022-03-06 13:22] LABS: ALBUMIN 3.4 g/dL (3.4-5.0); ANION GAP 10.4 (8-16); CARBON DIOXIDE 28.2 mmol/L (21-32); CHOL/HDL RATIO 2.5 (1-4.5); CREATININE 0.6 mg/dL (0.6-1.3); FREE T4 (FREE THYROXINE) 0.79 ng/dL (0.76-1.46); POTASSIUM 3.6 mmol/L (3.5-5.1); THYROID STIMULATING HORMONE 1.01 uIU/mL (0.34-3.74); TOTAL BILIRUBIN 0.5 mg/dL (0.0-1.0)
[2022-03-07 12:08] LABS: MICROALBUMIN, UR RANDOM 168.4 ug/mL (Not Estab.)
== END 2022-03-06 19:56 | disposition home or self-care (01) ==
LOC: MLB 11:37
PROVIDERS: ATTEND Specialist
DX: I10 Essential (primary) hypertension (principal); E11.69 Type 2 diabetes mellitus with other specified complication; D50.9 Iron deficiency anemia, unspecified; E05.20 Thyrotoxicosis with toxic multinodular goiter without thyrotoxic crisis or storm
CPT/HCPCS: 36415; 80053; 82043; 82570; 83036; 83540; 84439; 84443; 84479; 84480; 85025

== ENCOUNTER 2022-03-24 17:15 | Emergency (ER) | payer OTHER ==
[~2022-03-24] VITALS: Ht 157.5 cm; Wt 86.2 kg
[2022-03-24 17:22] VITALS: BP 118/74
--- NOTE | 2022-03-24 17:50 | NUR ---
66/F BIB SELF WITH C/O LEFT SIDED FLANK PAIN SINCE THURSDAY. STATES HX OF KIDNEY STONES AND STATES PAIN FEELS SIMILAR, DENIES DYSURIA/HEMATURIA. REPORTS TAKING TYLENOL WITH NO RELIEF. UPON ASSESSMENT PAIN IS FELT MID L BACK LATERAL TO SPINE. TENDERNESS NOTED UPON PALPATION. NO PAIN NOTED ON R SIDE. CURRENT PAIN 8/10 AND STABBING LIKE PAIN THAT IS CONSTANT. PT A&OX4 MEDHX: DM, HTN, CHOLESTEROL, THYROID ALLEGIES: PENICILLINS
--- NOTE | 2022-03-24 18:33 | NUR ---
DR. HARP BEDSIDE EVALUATING PT
[2022-03-24] MEDS ORDERED: NACL 0.9% 1,000 ML IV ONE (18:40)
[2022-03-24] MEDS ORDERED: KETOROLAC 30 MG/ML VIAL IVP ONE (18:40)
--- NOTE | 2022-03-24 18:52 | NUR ---
PT PROVIDED WITH WARM BLANKET
--- NOTE | 2022-03-24 18:55 | NUR ---
URINE WALKED TO LAB AND HANDED TO PHYSICAL METEOROLOGIST
[2022-03-24 18:59] LABS: BILIRUBIN,URINE NEGATIVE (NEGATIVE); BLOOD, URINE 3+ (NEGATIVE); LEUKOCYTE ESTERASE ,URINE 1+ (NEGATIVE); NITRITE, URINE NEGATIVE (NEGATIVE); UGLUCOSE NEGATIVE (NEGATIVE)
[2022-03-24 19:01] LABS: APPEARANCE,URINE CLOUDY (CLEAR); COLOR,URINE AMBER (YELLOW)
[2022-03-24 19:10] LABS: RBC,URINE >100 /HPF (0-5)
--- NOTE | 2022-03-24 19:15 | NUR ---
Pt report given to JENNIFER LOYA. Transfer of care at this time.
--- NOTE | 2022-03-24 19:20 | NUR ---
RECIVED REPORT FROM YOANA
--- NOTE | 2022-03-24 19:39 | NUR ---
LAB AT BEDSIDE
[2022-03-24 19:46] LABS: BASOPHILS % (AUTO) 0.4 % (0.0-2.0); EOSINOPHILS # (AUTO) 0.2 K/uL (0-0.4); EOSINOPHILS % (AUTO) 2.7 % (0.0-4.0); HEMATOCRIT 31.8 % (36-48); HEMOGLOBIN 9.9 g/dL (12.0-16.0); LYMPHOCYTES # (AUTO) 1.3 K/uL (2.5-16.5); LYMPHOCYTES % (AUTO) 15.3 % (20.5-51.1); MEAN CORPUSCULAR HEMOGLOBIN 26 pg (27-31); MEAN CORPUSCULAR HGB CONC 31 g/dL (33-37); MEAN CORPUSCULAR VOLUME 82.1 fL (80-94); MONOCYTES # (AUTO) 0.7 K/uL (0.8-1.0); MONOCYTES % (AUTO) 8.3 % (1.7-9.3); NEUTROPHILS % (AUTO) 73.3 % (42.2-75.2); PLATELET COUNT (AUTO) 315 K/uL (140-450); RED BLOOD CELL COUNT(AUTO) 3.87 MIL/uL (4.20-5.40); RED CELL DISTRIBUTION WIDTH 18.5 % (11.6-13.7); WHITE BLOOD COUNT (AUTO) 8.2 K/uL (4.8-10.8)
--- NOTE | 2022-03-24 19:58 | NUR ---
PT TAKEN TO CT
[2022-03-24 20:02] LABS: ALBUMIN 3.3 g/dL (3.4-5.0); ANION GAP 11.5 (8-16); CARBON DIOXIDE 26.5 mmol/L (21-32); CREATININE 0.7 mg/dL (0.6-1.3); TOTAL BILIRUBIN 0.5 mg/dL (0.0-1.0)
[2022-03-24] MEDS ORDERED: IBUP-2213 PO (20:44)
[2022-03-24] MEDS ORDERED: ACET-8386 PO (20:44)
[2022-03-24] MEDS ORDERED: CIPR500T4 PO (20:44)
[2022-03-24] MEDS ORDERED: TAMS0.4C96 PO (20:44)
[2022-03-24 21:10] VITALS: BP 147/55
--- NOTE | 2022-03-24 21:11 | NUR ---
Patient discharged with v/s stable. Written and verbal after care instructions given and explained. Patient alert, oriented and verbalized understanding of instructions. Ambulatory with steady gait. All questions addressed prior to discharge. ID band removed. Patient advised to follow up with PMD. Rx of [place] 3/325, cipro, ibuprofen & flomax given. Patient educated on indication of medication including possible reaction and side effects. Opportunity to ask questions provided and answered.
== END 2022-03-24 21:11 | disposition home or self-care (01) ==
LOC: EEVIPCON 17:15 → MED 17:15
DX: N39.0 Urinary tract infection, site not specified (principal); N20.0 Calculus of kidney; I10 Essential (primary) hypertension; E11.9 Type 2 diabetes mellitus without complications; E78.6 Lipoprotein deficiency; Z86.39 Personal history of other endocrine, nutritional and metabolic disease; Z79.899 Other long term (current) drug therapy; Z79.1 Long term (current) use of non-steroidal anti-inflammatories (NSAID); Z88.0 Allergy status to penicillin
CPT/HCPCS: 36415; 74176; 80053; 81001; 83690; 85025; 87086; 96361; 96374; 99284; J1885; J7030

== ENCOUNTER 2022-04-08 10:09 | Outpatient (CLI) | payer OTHER ==
[~2022-04-08 10:09] MED LIST changes: +ACET-8386 PO; +CIPR500T4 PO; +TAMS0.4C96 PO
[2022-04-08 11:41] LABS: APPEARANCE,URINE HAZY (CLEAR); BILIRUBIN,URINE NEGATIVE (NEGATIVE); BLOOD, URINE 3+ (NEGATIVE); COLOR,URINE YELLOW (YELLOW); LEUKOCYTE ESTERASE ,URINE TRACE (NEGATIVE); NITRITE, URINE NEGATIVE (NEGATIVE); UGLUCOSE NEGATIVE (NEGATIVE)
[2022-04-08 13:34] LABS: RBC,URINE 11-20 (MOD) /HPF (0-5)
== END 2022-04-08 20:48 | disposition home or self-care (01) ==
LOC: MLB 10:09
PROVIDERS: ATTEND Family Medicine
DX: N30.00 Acute cystitis without hematuria (principal); N20.0 Calculus of kidney
CPT/HCPCS: 81001; 87086

== ENCOUNTER 2022-04-18 10:38 | Outpatient (CLI) | payer OTHER ==
[2022-04-18 11:30] LABS: BASOPHILS # (AUTO) 0.1 K/uL (0.00-0.22); BASOPHILS % (AUTO) 0.8 % (0.0-2.0); EOSINOPHILS # (AUTO) 0.3 K/uL (0-0.4); HEMATOCRIT 32.4 % (36-48); HEMOGLOBIN 10.5 g/dL (12.0-16.0); LYMPHOCYTES # (AUTO) 1.4 K/uL (2.5-16.5); LYMPHOCYTES % (AUTO) 19.4 % (20.5-51.1); MEAN CORPUSCULAR HEMOGLOBIN 27 pg (27-31); MEAN CORPUSCULAR HGB CONC 32 g/dL (33-37); MEAN CORPUSCULAR VOLUME 83.6 fL (80-94); MONOCYTES # (AUTO) 0.6 K/uL (0.8-1.0); MONOCYTES % (AUTO) 8.4 % (1.7-9.3); NEUTROPHILS # (AUTO) 4.7 K/uL (1.8-7.7); NEUTROPHILS % (AUTO) 66.4 % (42.2-75.2); PLATELET COUNT (AUTO) 360 K/uL (140-450); RED BLOOD CELL COUNT(AUTO) 3.88 MIL/uL (4.20-5.40); RED CELL DISTRIBUTION WIDTH 18.3 % (11.6-13.7)
[2022-04-19 08:08] LABS: FOLIC ACID > 20.00 ng/mL (>3.0)
[2022-04-19 13:37] LABS: FERRITIN 12 ng/mL (15 - 150)
== END 2022-04-18 19:32 | disposition home or self-care (01) ==
LOC: MLB 10:38
PROVIDERS: ATTEND Family Medicine
DX: D64.9 Anemia, unspecified (principal)
CPT/HCPCS: 36415; 82607; 82728; 82746; 83540; 85025; 85045

== ENCOUNTER 2022-05-01 13:00 | Outpatient (CLI) | payer OTHER | END 2022-05-01 20:06 | disposition home or self-care (01) | LOC: MRD 13:00 | PROVIDERS: ATTEND Urology | DX: N20.0 Calculus of kidney (principal); I70.0 Atherosclerosis of aorta; M41.86 Other forms of scoliosis, lumbar region; M47.816 Spondylosis without myelopathy or radiculopathy, lumbar region | CPT/HCPCS: 74018 ==

== ENCOUNTER 2022-05-07 11:37 | Outpatient (CLI) | payer OTHER | END 2022-05-07 20:24 | disposition home or self-care (01) | LOC: MLB 11:37 | PROVIDERS: ATTEND Urology | DX: N20.0 Calculus of kidney (principal); M47.817 Spondylosis without myelopathy or radiculopathy, lumbosacral region | CPT/HCPCS: 74018 ==

== ENCOUNTER 2022-05-20 11:42 | Outpatient (CLI) | payer OTHER ==
[2022-05-20 12:11] LABS: BASOPHILS # (AUTO) 0.1 K/uL (0.00-0.22); BASOPHILS % (AUTO) 0.6 % (0.0-2.0); EOSINOPHILS # (AUTO) 0.7 K/uL (0-0.4); EOSINOPHILS % (AUTO) 8.3 % (0.0-4.0); HEMOGLOBIN 11.6 g/dL (12.0-16.0); LYMPHOCYTES # (AUTO) 1.4 K/uL (2.5-16.5); LYMPHOCYTES % (AUTO) 15.2 % (20.5-51.1); MEAN CORPUSCULAR HEMOGLOBIN 27 pg (27-31); MEAN CORPUSCULAR HGB CONC 32 g/dL (33-37); MEAN CORPUSCULAR VOLUME 84.7 fL (80-94); MONOCYTES # (AUTO) 0.7 K/uL (0.8-1.0); MONOCYTES % (AUTO) 7.5 % (1.7-9.3); NEUTROPHILS # (AUTO) 6.2 K/uL (1.8-7.7); NEUTROPHILS % (AUTO) 68.4 % (42.2-75.2); PLATELET COUNT (AUTO) 341 K/uL (140-450); RED BLOOD CELL COUNT(AUTO) 4.25 MIL/uL (4.20-5.40); RED CELL DISTRIBUTION WIDTH 15.9 % (11.6-13.7); WHITE BLOOD COUNT (AUTO) 9.1 K/uL (4.8-10.8)
== END 2022-05-20 21:02 | disposition home or self-care (01) ==
LOC: MLB 11:42
PROVIDERS: ATTEND Specialist
DX: K44.9 Diaphragmatic hernia without obstruction or gangrene (principal); K57.30 Diverticulosis of large intestine without perforation or abscess without bleeding; D50.9 Iron deficiency anemia, unspecified
CPT/HCPCS: 36415; 82728; 83540; 85025